=== PATIENT | female | born 1930 | race Caucasian/White ===

== ENCOUNTER 2017-07-17 11:31 | Emergency (ER) | payer MEDICARE ==
--- NOTE | 2017-07-17 11:55 | EDM.PDOC ---
ED HPI GENERAL MEDICAL PROBLEM - General Chief Complaint: General Stated Complaint: ER Time Seen by Provider: 07/17/17 11:40 Source of Information: Reports: Patient, Family, RN, RN Notes Reviewed History Limitations: Reports: No Limitations - History of Present Illness INITIAL COMMENTS - FREE TEXT/NARRATIVE: Patient presents the emergency room at [facility] after she had a near syncopal episode at home. The patient states that about an hour ago she felt diaphoretic, flushed, dizzy, and lightheaded in which she had to immediately sit down. The patient's daughter states that her mother became very very pale. The patient did not fall. No head injury. The patient did take her blood pressure medicines morning. The patient states the symptoms happened while she was standing next to the counter making breakfast. The patient denies any chest pain. The patient denies any shortness of breath. The patient denies any headache. The patient denies any visual field disturbances. The patient states that this past week she has felt more urinary frequency and urgency. The patient denies any hematuria. The patient states her urine looks more concentrated. Onset: Today, Sudden - Related Data Allergies Allergy/AdvReac Type Severity Reaction Status Date / Time No Known Allergies Allergy Verified 07/17/17 11:42 Home Meds: Home Meds Aspirin 81 mg PO DAILY 07/17/17 [History] Brimonidine/Timolol [Combigan 0.2%/0.5% Ophth Soln] 1 drop EYEBOTH BID 07/17/17 [History] Calc/D3/Mag/Zn/Custom T[employer]or/[place] [Calcium 600 MG Plus Vit D] 1 each PO BID [History] Colesevelam [Welchol] 2 tab PO BID 07/17/17 [History] Cyanocobalamin (Vitamin B-12) [B-12] 500 mcg PO DAILY 07/17/17 [History] Glucosamine/Msm/Chondroitin A [Glucosamine Chondroit MSM Tab] 1 each PO DAILY [History] Latanoprost [Xalatan] 1 drop OP BEDTIME 07/17/17 [History] Lutein 40 mg PO DAILY 07/17/17 [History] Metoprolol Succinate [Toprol Xl] 50 mg PO DAILY 07/17/17 [History] Multivitamin [Daily Multiple Vitamin] 1 tab PO DAILY 07/17/17 [History] [place]-3S/DHA/Epa/Fish Oil [[place]-3 Fish Oil 1,000 mg Sfgl] 1 each PO DAILY 07/17 [History] Turmeric Root Extract [Turmeric] 500 mg PO ASDIRECTED 07/17/17 [History] cycloSPORINE [Restasis] 1 drop EYEBOTH BID 07/17/17 [History] Past Medical History Cardiovascular History: Reports: Hypertension Social & Family History - Tobacco Use Smoking Status *Q: Never Smoker ED ROS GENERAL - Review of Systems Review Of Systems: See Below Constitutional: Reports: Weakness, Diaphoresis. Denies: Fever, Chills, Decreased Appetite Respiratory: Denies: Shortness of Breath, Cough Cardiovascular: Reports: Lightheadedness. Denies: Chest Pain, Palpitations GI/Abdominal: Denies: Abdominal Pain, Nausea, Vomiting Skin: Reports: Diaphoresis, Other (felt flushed) Neurological: Reports: Dizziness. Denies: Headache, Numbness, Paresthesia, Tingling ED EXAM, GENERAL - Physical Exam Exam: See Below Exam Limited By: No Limitations General Appearance: Alert, No Apparent Distress Eye Exam: Bilateral Eye: Normal Inspection, PERRL Ears: Normal External Exam, Normal Canal, Normal TMs Ear Exam: Bilateral Ear: TM normal Respiratory/Chest: No Respiratory Distress, Lungs Clear, Normal Breath Sounds Cardiovascular: Normal Peripheral Pulses, Regular Rate, Rhythm, No Edema Peripheral Pulses: 2+: Radial (L), Radial (R) GI/Abdominal: Normal Bowel Sounds, Soft, Non-Tender Neurological: Alert, Oriented Skin Exam: Warm, Dry, Intact, Normal Color EKG INTERPRETATION EKG Date: 07/17/17 Time: 12:01 Rhythm: NSR Rate (Beats/Min): 57 [place]: Normal P-Wave: Present QRS: Normal ST-T: Normal QT: Normal [place]/PQ Interval: 0.20 Comparison: NA - No Prior EKG EKG Interpretation Comments: 1. Sinus Bradycardia 2. Low QRS voltage in precordial leads 3. Borderline ECG Course - Vital Signs Last Recorded V/S: Last Vital Signs Temp 36.2 C 07/17/17 11:31 Pulse 58 L 07/17/17 12:36 Resp 16 07/17/17 12:36 BP 151/66 H 07/17/17 12:36 Pulse Ox 99 07/17/17 12:36 - Orders/Labs/Meds Orders: Active Orders 24 hr Category Date Time Status EKG 12 Lead [EKG Documentation Completion] [RC] STAT Care 07/17/17 11:40 Active Labs: Laboratory Tests 07/17/17 07/17/17 07/17/17 Range/Units 11:57 11:57 13:06 WBC 6.8 (4.0-10.0) x10^3/uL RBC 4.44 (4.00-5.50) x10^6/uL Hgb 13.6 (12.0-16.0) g/dL Hct 41.2 (33.0-47.0) % MCV 92.8 (78.0-93.0) fL MCH 30.6 (26.0-32.0) pg MCHC 33.0 (32.0-36.0) g/dL RDW Coeff of Valentin 14.5 (10.0-15.0) % Plt Count 169 (130-400) x10^3/uL Neut % (Auto) 53.7 (50.0-80.0) % Lymph % (Auto) 35.3 (25.0-50.0) % [place] % (Auto) 8.1 (2.0-11.0) % Eos % (Auto) 2.2 (0.0-4.0) % Baso % (Auto) 0.7 (0.2-1.2) % Sodium 134 L (136-145) mmol/L Potassium 4.8 (3.5-5.1) mmol/L Chloride 100 (98-107) mmol/L Carbon Dioxide 29 (21-32) mmol/L BUN 12 (7-18) mg/dL Creatinine 1.2 H (0.55-1.02) mg/dL Est Cr Clr Drug Dosing TNP Estimated GFR (MDRD) 43 Glucose 155 H (74-106) mg/dL Calcium 9.2 (8.5-10.1) mg/dL Creatine Kinase 95 (26-192) U/L Troponin I < 0.017 (<=0.056) ng/mL Urine Color Yellow (YELLOW) Urine Appearance Clear (CLEAR) Urine pH 7.0 (5.0-8.0) Ur Specific [place] 1.015 Urine Protein Negative (NEGATIVE) mg/dL Urine Glucose (UA) Negative (NEGATIVE) mg/dL Urine Ketones Negative (NEGATIVE) mg/dL Urine Occult Blood Negative (NEGATIVE) Urine Nitrite Negative (NEGATIVE) Urine Bilirubin Negative (NEGATIVE) Urine Urobilinogen 0.2 (0.2) EU/dL Ur Leukocyte Esterase Small H (NEGATIVE) Urine RBC 0-5 (NOT SEEN) /HPF Urine WBC 0-5 (NOT SEEN) /HPF Ur Squamous Epith Cells Few H (NEGATIVE) /HPF Urine Bacteria Rare (NEGATIVE) /HPF Urine Mucus Not seen (NEGATIVE) /LPF Departure - Departure Time of Disposition: 13:20 Disposition: Home, Self-Care 01 Condition: Good Clinical Impression: Near syncope - Discharge Information Instructions: Near-Syncope, [id number] Referrals: Loretta Light MD [Primary Care Provider] - Forms: ED Department Discharge Additional Instructions: 1. Stay well hydrated and rest 2. Continue with home medications the same 3. Blood work and EKG were normal today 4. See your Primary as symptoms warrant 5. Call with any questions/concerns, your health is important to us! - Problem List Review Problem List Initiated/Reviewed/Updated: Yes - My Orders Last 24 Hours: My Active Orders 07/17/17 11:40 EKG 12 Lead [EKG Documentation Completion] [RC] STAT - Assessment/Plan Last 24 Hours: My Active Orders 07/17/17 11:40 EKG 12 Lead [EKG Documentation Completion] [RC] STAT Assessment:: Near-Syncope Plan: Labs and testing discussed with patient. No etiology found for her symptoms. Will discharge home as no reason for admission. Recommend follow up with PCP as symptoms warrant.
[2017-07-17 12:25] LABS: CHLORIDE,CL 100 mmol/L (98-107); SODIUM,NA 134 mmol/L (136-145)
== END 2017-07-17 13:35 | disposition home or self-care (01) ==
LOC: VM.ED 11:31
DX: R55 Syncope and collapse (principal); I10 Essential (primary) hypertension; Z79.899 Other long term (current) drug therapy; Z79.82 Long term (current) use of aspirin
CPT/HCPCS: 36415; 80048; 81001; 82550; 84484; 85025; 93005; 99284

== ENCOUNTER 2018-11-13 21:15 | Observation (INO) | payer MEDICARE ==
--- NOTE | 2018-11-13 21:46 | EDM.PDOC ---
ED HPI GENERAL MEDICAL PROBLEM - General Chief Complaint: General Stated Complaint: HIGH BP Time Seen by Provider: 11/13/18 21:30 Source of Information: Reports: Patient, Family History Limitations: Reports: No Limitations - History of Present Illness INITIAL COMMENTS - FREE TEXT/NARRATIVE: Patient tonight while at the assisted living facility approximately 5pm patient states that she is having some blurry vision and having trouble focusing on objects her blood pressure was checked and found to be 186/135 patient states that she recently on November 06 saw her primary care provider which stopped her lisinopril secondary to possibly causing the dizziness that she was getting at 5 PM every night but she says that is been going on for months now and she says as soon as she lays down the dizziness goes away she said it would last just a few minutes Patient states that she feels fine now she denies any headache loss of vision nausea or vomiting and ringing or roaring in the ears lightheadedness dizziness weakness no numbness or tingling anywhere no strokelike symptoms says she she feels fine overall and has had no issues over the last week Onset: Today Duration: Hour(s): - Related Data Allergies Allergy/AdvReac Type Severity Reaction Status Date / Time No Known Allergies Allergy Verified 11/13/18 21:38 Home Meds: Home Meds Aspirin 81 mg PO BID 07/17/17 [History] Brimonidine/Timolol [Combigan 0.2%/0.5% Ophth Soln] 1 drop EYEBOTH BID 07/17/17 [History] Calc/D3/Mag/Zn/[employer] Writer/[place] [Calcium 600 MG Plus Vit D] 1 each PO BID [History] Colesevelam [Welchol] 1,250 mg PO BID 07/17/17 [History] Cyanocobalamin (Vitamin B-12) [B-12] 500 mcg PO DAILY 07/17/17 [History] Glucosamine/Msm/Chondroitin A [Glucosamine Chondroit MSM Tab] 1 each PO DAILY [History] Latanoprost [Xalatan] 1 drop OP BEDTIME 07/17/17 [History] Lutein 40 mg PO BID 07/17/17 [History] Metoprolol Succinate [Toprol Xl] 50 mg PO DAILY 07/17/17 [History] Multivitamin [Daily Multiple Vitamin] 1 tab PO DAILY 07/17/17 [History] [place]-3S/DHA/Epa/Fish Oil [[place]-3 Fish Oil 1,000 mg Sfgl] 1 each PO DAILY 07/17 [History] Turmeric Root Extract [Turmeric] 500 mg PO ASDIRECTED 07/17/17 [History] cycloSPORINE [Restasis] 1 drop EYEBOTH BID 07/17/17 [History] Ipratropium [place] 2 spray NS DAILY 11/13/18 [History] Memantine HCl 10 mg PO BID 11/13/18 [History] Past Medical History HEENT History: Reports: Glaucoma, Other (See Below) Other HEENT History: presbyopia, blepharitis, hereditary corneal dystrophy Cardiovascular History: Reports: Hypertension Gastrointestinal History: Reports: Diverticulosis Genitourinary History: Reports: Urinary Incontinence Musculoskeletal History: Reports: Osteoarthritis ED ROS GENERAL - Review of Systems Review Of Systems: See Below Constitutional: Reports: No Symptoms. Denies: Fever, Chills, Malaise, Weakness , Fatigue HEENT: Reports: No Symptoms, Vision Change. Denies: Ear Pain, Eye Discharge, Eye Pain, Hearing Loss, Sinus Problem, Vertigo Respiratory: Reports: No Symptoms. Denies: Shortness of Breath, Wheezing, Pleuritic Chest Pain Cardiovascular: Reports: No Symptoms Endocrine: Reports: No Symptoms GI/Abdominal: Reports: No Symptoms : Reports: No Symptoms Musculoskeletal: Reports: No Symptoms Skin: Reports: No Symptoms Neurological: Reports: No Symptoms Psychiatric: Reports: No Symptoms Hematologic/Lymphatic: Reports: No Symptoms Immunologic: Reports: No Symptoms ED EXAM, GENERAL - Physical Exam Exam: See Below Exam Limited By: No Limitations General Appearance: Alert, WD/WN, No Apparent Distress Eye Exam: Bilateral Eye: EOMI, PERRL Ears: Normal External Exam, Normal Canal, Hearing Grossly Normal, Normal TMs Nose: Normal Inspection, Normal Mucosa, No Blood Throat/Mouth: Normal Inspection, Normal Lips, Normal Gums, Normal Oropharynx, Normal Voice, No Airway Compromise Head: Atraumatic, Normocephalic. No: Facial Swelling, Facial Tenderness Neck: Normal Inspection, Supple, Non-Tender, Full Range of Motion. No: Carotid Bruit, Limited Range of Motion Respiratory/Chest: No Respiratory Distress, Lungs Clear, Normal Breath Sounds, No Accessory Muscle Use, Chest Non-Tender Cardiovascular: Normal Peripheral Pulses, Regular Rate, Rhythm, No Edema, No Gallop, No JVD, No Murmur, No Rub GI/Abdominal: Normal Bowel Sounds, Soft, Non-Tender, No Organomegaly, No Distention, No Abnormal Bruit Back Exam: Full Range of Motion Extremities: Normal Inspection, Normal Range of Motion, Non-Tender, No Pedal Edema, Normal Capillary Refill Neurological: Alert, Oriented, CN II-XII Intact, Normal Cognition, Normal Gait, Normal Reflexes, No Motor/Sensory Deficits, Other (Patient follows all commands has normal speech and normal thought and logic normal conversation cranial nerves II through XII are intact she has equal cardiology physician assistant bilaterally she has equal facial sensation she has no pronator drift follow [address] around upper and lower extremity no evidence of any acute stroke) Psychiatric: Normal Affect, Normal Mood Skin Exam: Warm, Dry, Normal Color, No Rash Course - Vital Signs Text/Narrative:: CBC BMP EKG and CT head noncontrast was ordered along with EKG CT head negative EKG normal sinus rhythm nothing acute WERE within normal limits except for mild hypoNA of 132 I will give the patient 20 mg of lisinopril secondary to she has been on them in the past with no issues WITH patient in under observation for the next 23 hours and have a primary care provider pick her up in the morning spoke with Dr. Michelle Yousif she is okay with the diagnosis and treatment The patient will be put back on lisinopril 10 mg starting in the a.m. until seen are changed by the primary care provider Last Recorded V/S: Last Vital Signs Temp 37.4 C 11/13/18 21:15 Pulse 75 11/13/18 22:25 Resp 18 11/13/18 21:15 BP 193/91 H 11/13/18 22:24 Pulse Ox 96 11/13/18 22:25 - Orders/Labs/Meds Orders: Active Orders 24 hr Category Date Time Status EKG 12 Lead [EKG Documentation Completion] [RC] STAT Care 11/13/18 21:41 Active Head wo Cont [CT] Stat Exams 11/13/18 21:40 Taken Lisinopril [Prinivil] Med 11/14/18 08:00 Ordered 20 mg PO DAILY Labs: Laboratory Tests 11/13/18 11/13/18 11/13/18 Range/Units 21:58 21:58 22:08 WBC 9.3 (4.0-10.0) x10^3/uL RBC 4.90 (4.00-5.50) x10^6/uL Hgb 15.0 (12.0-16.0) g/dL Hct 43.0 (33.0-47.0) % MCV 87.8 D (78.0-93.0) fL MCH 30.6 (26.0-32.0) pg MCHC 34.9 (32.0-36.0) g/dL RDW Coeff of Valentin 14.0 (10.0-15.0) % Plt Count 194 (130-400) x10^3/uL Neut % (Auto) 42.5 L (50.0-80.0) % Lymph % (Auto) 40.8 (25.0-50.0) % [place] % (Auto) 13.5 H (2.0-11.0) % Eos % (Auto) 2.9 (0.0-4.0) % Baso % (Auto) 0.3 (0.2-1.2) % Sodium 132 L (136-145) mmol/L Potassium 4.0 (3.5-5.1) mmol/L Chloride 95 L (98-107) mmol/L Carbon Dioxide 27 (21-32) mmol/L Anion Gap 14.0 (10-20) mmol/L BUN 11 (7-18) mg/dL Creatinine 1.1 H (0.55-1.02) mg/dL Est Cr Clr Drug Dosing 32.29 mL/min Estimated GFR (MDRD) 47 Glucose 106 (74-106) mg/dL Calcium 9.2 (8.5-10.1) mg/dL Urine Color Yellow (YELLOW) POC Urine Appearance Slightly cloudy H (CLEAR) POC Urine pH 7.0 (5.0-8.0) Ur Specific [place] 1.015 (1.005-1.030) POC Urine Protein Negative (NEGATIVE) POC Ur Glucose (UA) Negative (NEGATIVE) POC Urine Ketones Negative (NEGATIVE) POC Ur Occult Blood Negative (NEGATIVE) POC Urine Nitrite Negative (NEGATIVE) POC Urine Bilirubin Negative (NEGATIVE) POC Urine Urobilinogen 0.2 (0.2) POC U Leukocyte Esteras Trace H (NEGATIVE) Departure - Departure Time of Disposition: 22:20 Disposition: Refer to Observation Condition: Good Clinical Impression: Hypertensive urgency - Discharge Information Referrals: Delmis Lobo DO [Primary Care Provider] - Forms: ED Department Discharge - Problem List & Annotations (1) Hypertensive urgency SNOMED Code(s): 481606231 Code(s): I16.0 - HYPERTENSIVE URGENCY Status: Acute Current Visit: Yes - My Orders Last 24 Hours: My Active Orders 11/13/18 21:40 Head wo Cont [CT] Stat 11/13/18 21:41 EKG 12 Lead [EKG Documentation Completion] [RC] STAT 11/14/18 08:00 Lisinopril [Prinivil] 20 mg PO DAILY - Assessment/Plan Admission H&P: Please use this note as an admission H&P Last 24 Hours: My Active Orders 11/13/18 21:40 Head wo Cont [CT] Stat 11/13/18 21:41 EKG 12 Lead [EKG Documentation Completion] [RC] STAT 11/14/18 08:00 Lisinopril [Prinivil] 20 mg PO DAILY Assessment:: Assessment #1 hypertension urgency Assessment #2 transient vision problems Assessment #3 hyponatremia
[2018-11-13] MEDS: Lisinopril 20 MG Tab PO SCH (22:49)
[2018-11-13] MEDS ORDERED: Sodium Chloride 0.9% 10 ML Syringe FLUSH PRN (23:11)
[2018-11-14 07:06] LABS: ANION GAP 12.1 mmol/L (10-20)
--- NOTE | 2018-11-14 07:46 | CT ---
[id number] CT/CT Head WO IV EXAM: NONCONTRAST HEAD CT INDICATION: Hypertension. COMPARISON: February 17, 2017. DISCUSSION: Stable moderate chronic small vessel ischemic changes and generalized atrophy. No mass effect or midline shift. No acute hemorrhage or extra-axial fluid collection. No acute territorial infarct is identified. There are few opacified right mastoid air cells similar to the previous examination. The paranasal sinuses are unremarkable. IMPRESSION: 1. No acute findings. Corby Ramirez MD 11/14/18 0745 Thank you for allowing us to participate in the care of your patient.
[2018-11-14] MEDS ORDERED: Lisinopril 20 MG Tab PO SCH (08:00)
[2018-11-14] MEDS ORDERED: COMBIGAN EYEBOTH SCH (08:00)
[2018-11-14] MEDS ORDERED: Metoprolol Succinate 50 MG Tab.ER PO SCH (08:00)
[2018-11-14] MEDS ORDERED: Aspirin 81 MG Tab.Chew PO SCH (08:00)
[2018-11-14] MEDS ORDERED: Dextran 70/Hypromellose/PF Ophth Soln 0.9 ML UD EYEBOTH SCH (08:00)
[2018-11-14] MEDS ORDERED: Cyanocobalamin (Vitamin B12) 250 MCG Tab PO SCH (08:00)
[2018-11-14] MEDS: Lisinopril 20 MG Tab PO SCH (09:51)
--- NOTE | 2018-11-14 12:35 | PCM.DCSUM1 ---
Discharge Summary - Hospital Course Free Text/Narrative:: Patient was rechecked this morning and states she feels much better than she did last night she denies any headache vision issues, nausea and lightheadedness dizziness weakness no trouble with gait. States she ate a full breakfast and a full lunch today with no issues and wants to go home. 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 she has a normal conversation and thought process eyes pupils equal round reactive light and accommodation EOMIs intact oropharynx moist mucous membranes neck full range of motion no adenopathy heart regular rate and rhythm no murmurs rubs or gallops lungs clear to auscultation abdomen soft and supple positive bowel sounds no lower extremity ecchymosis or edema was noted Spoke with primary care provider paz she states okay to go and restart patient on 5 mg lisinopril by mouth daily and have her follow-up in the next 2- 3 days in clinic Also spoke with the patient and the family patient's son and daughter who is power of ip attorney in regards to restarting the medication they are okay with it And states they will have her follow up this week with primary care provider Diagnosis: Stroke: No - Discharge Data Discharge Date: 11/14/18 Discharge Disposition: Home, Self-Care 01 Condition: Good - Discharge Diagnosis/Problem(s) (1) Hypertensive urgency SNOMED Code(s): 621864756 ICD Code: I16.0 - HYPERTENSIVE URGENCY Status: Acute Current Visit: Yes - Patient Instructions Diet, Other: regular Activity, Other: ad neeta Notify Provider of: Fever, Increased Pain, Swelling and Redness, Nausea and/or Vomiting - Discharge Plan *PRESCRIPTION DRUG MONITORING PROGRAM REVIEWED*: Not Applicable *COPY OF PRESCRIPTION DRUG MONITORING REPORT IN PATIENT BENNIE: No Prescriptions/Med Rec: Lisinopril [Prinivil] 5 mg PO DAILY #30 tablet Home Medications: Home Meds Brimonidine/Timolol [Combigan 0.2%/0.5% Ophth Soln] 1 drop EYEBOTH BID 07/17/17 [History] Calc/D3/Mag/Zn/Management Planner/Leo/Merkel [Calcium 600 MG Plus Vit D] 1 each PO BID [History] Colesevelam [Welchol] 1,250 mg PO BID 07/17/17 [History] Cyanocobalamin (Vitamin B-12) [B-12] 500 mcg PO DAILY 07/17/17 [History] Glucosamine/Msm/Chondroitin A [Glucosamine Chondroit MSM Tab] 1 each PO DAILY [History] Latanoprost [Xalatan 0.005% Ophth Soln] 1 drop OP BEDTIME 07/17/17 [History] Lutein 40 mg PO BID 07/17/17 [History] Metoprolol Succinate [Toprol Xl] 50 mg PO DAILY 07/17/17 [History] Multivitamin [Daily Multiple Vitamin] 1 tab PO DAILY 07/17/17 [History] [place]-3S/DHA/Epa/Fish Oil [[place]-3 Fish Oil 1,000 mg Sfgl] 1,000 mg PO DAILY [History] Turmeric Root Extract [Turmeric] 500 mg PO ASDIRECTED 07/17/17 [History] cycloSPORINE [Restasis] 1 drop EYEBOTH BID 07/17/17 [History] Ipratropium [place] 2 spray NASBOTH TID 11/13/18 [History] Memantine HCl 10 mg PO BID 11/13/18 [History] Aspirin 81 mg PO BID tab.chew 11/14/18 [Rx] Aspirin [Lo-Dose Aspirin EC] 81 mg PO DAILY 11/14/18 [History] Carboxymethyl/Glycerin/Poly80 [Refresh Optive Advanced Drops] 1 drop OP BID [History] Fluticasone Propionate [Flonase] 2 sprays NASBOTH BID 11/14/18 [History] Lisinopril [Prinivil] 5 mg PO DAILY #30 tablet 11/14/18 [Rx] Forms: ED Department Discharge Referrals: Paz Lobo DO [Primary Care Provider] - - Discharge Summary/Plan Comment DC Time >30 min.: No - General Info Date of Service: 11/14/18 Functional Status: Reports: Tolerating Diet - Review of Systems General: Reports: No Symptoms HEENT: Reports: No Symptoms Pulmonary: Reports: No Symptoms Cardiovascular: Reports: No Symptoms Gastrointestinal: Reports: No Symptoms Genitourinary: Reports: No Symptoms Musculoskeletal: Reports: No Symptoms Skin: Reports: No Symptoms Neurological: Reports: No Symptoms Psychiatric: Reports: No Symptoms - Patient Data Vitals - Most Recent: Last Vital Signs Temp 36.6 C 11/14/18 09:05 Pulse 75 11/14/18 09:48 Resp 16 11/14/18 09:05 BP 132/71 11/14/18 09:48 Pulse Ox 93 L 11/14/18 09:05 Weight - Most Recent: 63.503 kg I&O - Last 24 hours: Intake & Output 11/13/18 11/14/18 11/14/18 22:59 06:59 14:59 Intake Total 300 Output Total 1 Balance 300 -1 Lab Results - Last 24 hrs: Laboratory Results - last 24 hr 11/13/18 11/13/18 11/13/18 Range/Units 21:58 21:58 22:08 WBC 9.3 (4.0-10.0) x10^3/uL RBC 4.90 (4.00-5.50) x10^6/uL Hgb 15.0 (12.0-16.0) g/dL Hct 43.0 (33.0-47.0) % MCV 87.8 D (78.0-93.0) fL MCH 30.6 (26.0-32.0) pg MCHC 34.9 (32.0-36.0) g/dL RDW Coeff of Valentin 14.0 (10.0-15.0) % Plt Count 194 (130-400) x10^3/uL Neut % (Auto) 42.5 L (50.0-80.0) % Lymph % (Auto) 40.8 (25.0-50.0) % Coffey % (Auto) 13.5 H (2.0-11.0) % Eos % (Auto) 2.9 (0.0-4.0) % Baso % (Auto) 0.3 (0.2-1.2) % Sodium 132 L (136-145) mmol/L Potassium 4.0 (3.5-5.1) mmol/L Chloride 95 L (98-107) mmol/L Carbon Dioxide 27 (21-32) mmol/L Anion Gap 14.0 (10-20) mmol/L BUN 11 (7-18) mg/dL Creatinine 1.1 H (0.55-1.02) mg/dL Est Cr Clr Drug Dosing 32.29 mL/min Estimated GFR (MDRD) 47 Glucose 106 (74-106) mg/dL Calcium 9.2 (8.5-10.1) mg/dL Urine Color Yellow (YELLOW) POC Urine Appearance Slightly cloudy H (CLEAR) POC Urine pH 7.0 (5.0-8.0) Ur Specific [place] 1.015 (1.005-1.030) POC Urine Protein Negative (NEGATIVE) POC Ur Glucose (UA) Negative (NEGATIVE) POC Urine Ketones Negative (NEGATIVE) POC Ur Occult Blood Negative (NEGATIVE) POC Urine Nitrite Negative (NEGATIVE) POC Urine Bilirubin Negative (NEGATIVE) POC Urine Urobilinogen 0.2 (0.2) POC U Leukocyte Esteras Trace H (NEGATIVE) 11/14/18 Range/Units 06:36 WBC (4.0-10.0) x10^3/uL RBC (4.00-5.50) x10^6/uL Hgb (12.0-16.0) g/dL Hct (33.0-47.0) % MCV (78.0-93.0) fL MCH (26.0-32.0) pg MCHC (32.0-36.0) g/dL RDW Coeff of Valentni (10.0-15.0) % Plt Count (130-400) x10^3/uL Neut % (Auto) (50.0-80.0) % Lymph % (Auto) (25.0-50.0) % Coffey % (Auto) (2.0-11.0) % Eos % (Auto) (0.0-4.0) % Baso % (Auto) (0.2-1.2) % Sodium 134 L (136-145) mmol/L Potassium 4.1 (3.5-5.1) mmol/L Chloride 98 (98-107) mmol/L Carbon Dioxide 28 (21-32) mmol/L Anion Gap 12.1 (10-20) mmol/L BUN 13 (7-18) mg/dL Creatinine 1.5 H (0.55-1.02) mg/dL Est Cr Clr Drug Dosing 26.66 mL/min Estimated GFR (MDRD) 33 Glucose 114 H (74-106) mg/dL Calcium 9.2 (8.5-10.1) mg/dL Urine Color (YELLOW) POC Urine Appearance (CLEAR) POC Urine pH (5.0-8.0) Ur Specific [place] (1.005-1.030) POC Urine Protein (NEGATIVE) POC Ur Glucose (UA) (NEGATIVE) POC Urine Ketones (NEGATIVE) POC Ur Occult Blood (NEGATIVE) POC Urine Nitrite (NEGATIVE) POC Urine Bilirubin (NEGATIVE) POC Urine Urobilinogen (0.2) POC U Leukocyte Esteras (NEGATIVE) Med Orders - Current: Current Medications Artificial Tears (Tears Naturale Free) 1 each EYEBOTH BID [facility] Last Admin: 11/14/18 09:53 Dose: Not Given Aspirin (Aspirin) 81 mg PO BID [facility] Last Admin: 11/14/18 09:52 Dose: 81 mg Cyanocobalamin (Vitamin B12) 500 mcg PO DAILY [facility] Last Admin: 11/14/18 09:52 Dose: 500 mcg Lisinopril (Prinivil) 20 mg PO DAILY [facility] Last Admin: 11/14/18 09:51 Dose: Not Given Metoprolol Succinate (Toprol Xl) 50 mg PO DAILY [facility] Last Admin: 11/14/18 09:48 Dose: 50 mg Combigan 0.2%/0.5% Ophth Soln (Own Supply) 1 drop EYEBOTH BID [facility] Last Admin: 11/14/18 09:52 Dose: 1 drop Latanoprost 0.005% Ophth Soln (Own Supply) 0 each EYEBOTH BEDTIME [facility] Sodium Chloride (Saline Flush) 10 ml FLUSH ASDIRECTED PRN PRN Reason: Keep Vein Open Discontinued Medications Lisinopril (Prinivil) 20 mg PO DAILY [facility] - Exam General: Reports: Alert, Oriented HEENT: Reports: Pupils Equal, Pupils Reactive, EOMI, Mucous Membr. Moist/[place]atur[place] Neck: Reports: Supple Lungs: Reports: Clear to Auscultation, Normal Respiratory Effort Cardiovascular: Reports: Regular Rate, Regular Rhythm GI/Abdominal Exam: Normal Bowel Sounds, Soft, Non-Tender, No Organomegaly, No Distention Back Exam: Reports: Full Range of Motion Extremities: Normal Inspection, Normal Range of Motion, Non-Tender, No Pedal Edema Skin: Reports: Warm, Dry, Intact Neurological: Reports: No New Focal Deficit, Normal Gait, Normal Speech, Strength Equal Bilateral, Cranial Nerves Intact Psy/Mental Status: Reports: Alert, Normal Affect, Normal Mood
[2018-11-14] MEDS ORDERED: Latanoprost 0.005% Ophth Soln (own supply) EYEBOTH SCH (20:00)
== END 2018-11-14 13:05 | disposition home or self-care (01) ==
LOC: VM.ED 21:15 → VM.MS 22:36
PROVIDERS: ADMIT Physician Assistant Medical; ATTEND Physician Assistant Medical
DX: I16.0 Hypertensive urgency (principal); I10 Essential (primary) hypertension; H40.9 Unspecified glaucoma; M19.90 Unspecified osteoarthritis, unspecified site; Z79.82 Long term (current) use of aspirin; Z79.51 Long term (current) use of inhaled steroids; Z79.899 Other long term (current) drug therapy; H53.8 Other visual disturbances
CPT/HCPCS: 36415; 70450; 80048; 81002; 85025; 93005; 99217; 99219; 99285; A9270; G0378

== ENCOUNTER 2019-06-25 00:28 | Emergency (ER) | payer MEDICARE ==
--- NOTE | 2019-06-25 00:56 | EDM.PDOC ---
ED HPI GENERAL MEDICAL PROBLEM - General Chief Complaint: Lower Extremity Injury/Pain Stated Complaint: Fall, right hip pain Time Seen by Provider: 06/25/19 00:40 Source of Information: Reports: Family History Limitations: Reports: Altered Mental Status - History of Present Illness INITIAL COMMENTS - FREE TEXT/NARRATIVE: Patient presents to ER per EMS from assisted living facility with complaints of right hip pain. Son relates he was told that staff found her lying on the floor in her room. Walker was laying on the floor. Patient unsure of events of fall. Has been more confused and unsteady per the son and is currently being treated for an UTI. Patient complaints of pain from her right hip to knee. No head pain. No nausea, has not vomited. Son also reports she fell yesterday while opening her drapes, did not sustain injury at that time. Onset: Today, Sudden Duration: Minutes:, Constant Location: Reports: Lower Extremity, Right Quality: Reports: Throbbing Improves with: Reports: Rest Worsens with: Reports: Movement Context: Reports: Trauma Associated Symptoms: Reports: Confusion, Weakness. Denies: Cough, Fever/Chills , Nausea/Vomiting, Shortness of Breath Right hip/thigh Pain Score (Numeric/FACES): 6 - Related Data Allergies Allergy/AdvReac Type Severity Reaction Status Date / Time atorvastatin [From Lipitor] AdvReac Nausea and Verified 06/25/19 00:48 Vomiting fenofibrate [From Tricor] AdvReac Nausea Verified 06/25/19 00:48 simvastatin [From Zocor] AdvReac Nausea Verified 06/25/19 00:48 Yshfyyn-Jnd-Yya Reductase AdvReac Nausea Verified 06/25/19 00:48 Inhibitor Home Meds: Home Meds Brimonidine/Timolol [Combigan 0.2%/0.5% Ophth Soln] 1 drop EYEBOTH BID 07/17/17 [History] Calc/D3/Mag/Zn/Tre/Leo/[place] [Calcium 600 MG Plus Vit D] 1 each PO BID [History] Colesevelam [Welchol] 1,250 mg PO BID 07/17/17 [History] Cyanocobalamin (Vitamin B-12) [B-12] 500 mcg PO DAILY 07/17/17 [History] Glucosamine/Msm/Chondroitin A [Glucosamine Chondroit MSM Tab] 1 each PO DAILY [History] Latanoprost [Xalatan 0.005% Ophth Soln] 1 drop OP BEDTIME 07/17/17 [History] Lutein 40 mg PO BID 07/17/17 [History] Metoprolol Succinate [Toprol Xl] 50 mg PO DAILY 07/17/17 [History] Multivitamin [Daily Multiple Vitamin] 1 tab PO DAILY 07/17/17 [History] [place]-3S/DHA/Epa/Fish Oil [[place]-3 Fish Oil 1,000 mg Sfgl] 1,000 mg PO DAILY [History] Turmeric Root Extract [Turmeric] 500 mg PO ASDIRECTED 07/17/17 [History] cycloSPORINE [Restasis] 1 drop EYEBOTH BID 07/17/17 [History] Ipratropium [place] 2 spray NASBOTH TID 11/13/18 [History] Memantine HCl 10 mg PO BID 11/13/18 [History] Aspirin 81 mg PO BID tab.chew 11/14/18 [Rx] Aspirin [Lo-Dose Aspirin EC] 81 mg PO DAILY 11/14/18 [History] Carboxymethyl/Glycerin/Poly80 [Refresh Optive Advanced Drops] 1 drop OP BID [History] Fluticasone Propionate [Flonase] 2 sprays NASBOTH BID 11/14/18 [History] lisinopriL [Prinivil] 5 mg PO DAILY #30 tablet 11/14/18 [Rx] Past Medical History HEENT History: Reports: Glaucoma, Other (See Below) Other HEENT History: presbyopia, blepharitis, hereditary corneal dystrophy Cardiovascular History: Reports: Hypertension Gastrointestinal History: Reports: Diverticulosis Genitourinary History: Reports: Urinary Incontinence, UTI, Recurrent Musculoskeletal History: Reports: Osteoarthritis Neurological History: Reports: Alzheimers Disease - Past Surgical History Female Surgical History: Reports: Hysterectomy Social & Family History - Family History Family Medical History: Noncontributory - Tobacco Use Smoking Status *Q: Unknown Ever Smoked - Caffeine Use Caffeine Use: Reports: Coffee Review of Systems - Review of Systems Review Of Systems: See Below Constitutional: Reports: Weakness. Denies: Chills, Diaphoresis, Fever Eyes: Reports: No Symptoms Ears: Denies: Dizziness Nose: Denies: Epistaxis Mouth/Throat: Reports: No Symptoms Respiratory: Denies: Shortness of Breath Cardiovascular: Denies: Chest Pain, Palpitations GI/Abdominal: Denies: Abdominal Pain, Nausea, Vomiting Genitourinary: Reports: No Symptoms Musculoskeletal: Reports: Leg Pain, Joint Pain Skin: Reports: No Symptoms Neurological: Reports: Confusion ED EXAM, GENERAL - Physical Exam Exam: See Below Exam Limited By: No Limitations General Appearance: Alert, WD/WN, No Apparent Distress Ears: Normal External Exam, Normal TMs Nose: Normal Inspection, Normal Mucosa, No Blood Throat/Mouth: Normal Inspection, Normal Oropharynx Head: Normocephalic Neck: Normal Inspection, Supple, Non-Tender Respiratory/Chest: No Respiratory Distress, Lungs Clear, Normal Breath Sounds Cardiovascular: Regular Rate, Rhythm GI/Abdominal: Normal Bowel Sounds, Soft, Non-Tender Extremities: Limited Range of Motion (patient has pain with palpation of right thigh. RLE is externally rotated. ) Neurological: Alert, Oriented (person only) Skin Exam: Warm, Dry Course - Vital Signs Last Recorded V/S: Last Vital Signs Temp 97.8 F 06/25/19 00:30 Pulse 75 06/25/19 01:40 Resp 16 06/25/19 01:40 BP 171/101 H 06/25/19 01:40 Pulse Ox 98 06/25/19 01:40 - Orders/Labs/Meds Orders: Active Orders 24 hr Category Date Time Status Insert Nye Catheter [Insert Urinary Catheter] [OM.PC] Care 06/25/19 01:15 Ordered Q24H Urinary Catheter Assessment [RC] ASDIRECTED Care 06/25/19 01:17 Active Meds: Medications Discontinued Medications Generic Name Dose Route Start Last Admin Trade Name Tina PRN Reason Stop Dose Admin Fentanyl 25 mcg 06/25/19 00:52 06/25/19 01:00 Sublimaze IVPUSH 25 mcg Q2H PRN Administration Pain Fentanyl 25 mcg 06/25/19 01:45 06/25/19 02:04 Sublimaze IVPUSH 06/25/19 01:46 25 mcg ONETIME ONE Administration - Re-Assessments/Exams Free Text/Narrative Re-Assessment/Exam: 06/25/19 01:[address] Singleton at [place] in regards to right hip fracture. Agreed to accept the patient in transfer. Departure - Departure Time of Disposition: 01:36 Disposition: DC/Tfer to Acute Hospital 02 Condition: Fair Clinical Impression: Intertrochanteric fracture, hip, Hypertensive urgency - Discharge Information *PRESCRIPTION DRUG MONITORING PROGRAM REVIEWED*: No *COPY OF PRESCRIPTION DRUG MONITORING REPORT IN PATIENT BENNIE: No Referrals: PCP,Unobtain [Primary Care Provider] - Forms: ED Department Discharge, Interfacility Transfer [facility] Additional Instructions: Transfer to [facility] per [facility] ambulance, accepting physician Dr. Singleton. Sepsis Event Note - Evaluation Sepsis Screening Result: No Definite Risk - Focused Exam Date Exam was Performed: 06/25/19 Time Exam was Performed: 16:22 - My Orders Last 24 Hours: My Active Orders 06/25/19 01:15 Insert Nye Catheter [Insert Urinary Catheter] [OM.PC] Q24H 06/25/19 01:17 Urinary Catheter Assessment [RC] ASDIRECTED - Assessment/Plan Last 24 Hours: My Active Orders 06/25/19 01:15 Insert Nye Catheter [Insert Urinary Catheter] [OM.PC] Q24H 06/25/19 01:17 Urinary Catheter Assessment [RC] ASDIRECTED
[2019-06-25] MEDS: fentaNYL 100 MCG/2 ML SDV IVPUSH PRN (01:00)
[2019-06-25] MEDS: fentaNYL 100 MCG/2 ML SDV IVPUSH ONE (02:04)
--- NOTE | 2019-06-25 09:43 | CR ---
[id number] RAD/RAD Pelvis 1V W 2V Right Hip EXAM: 3 VIEWS RIGHT HIP INDICATION: FALL COMPARISON: None. DISCUSSION: Acute intertrochanteric fracture of the right femur. There are multiple radiographically evident fracture lines identified. No significant displacement. No dislocation. IMPRESSION: 1. ACUTE INTERTROCHANTERIC FRACTURE OF THE RIGHT FEMUR. Johnny Coleman DO 06/25/19 0942 Thank you for allowing us to participate in the care of your patient.
== END 2019-06-25 02:14 | disposition short-term general hospital (02) ==
LOC: VM.ED 00:28
DX: S72.141A Displaced intertrochanteric fracture of right femur, initial encounter for closed fracture (principal); I16.0 Hypertensive urgency; I10 Essential (primary) hypertension; G30.9 Alzheimer's disease, unspecified; F02.80 Dementia in other diseases classified elsewhere, unspecified severity, without behavioral disturbance, psychotic disturbance, mood disturbance, and anxiety; Z88.8 Allergy status to other drugs, medicaments and biological substances; Z79.899 Other long term (current) drug therapy; Z79.82 Long term (current) use of aspirin; W19.XXXA Unspecified fall, initial encounter
CPT/HCPCS: 51702; 96374; 96376; 99284-GF; 99285-25; J3010

== ENCOUNTER 2019-06-28 15:09 | Inpatient (IN) | payer MEDICARE, MEDICAID ==
[2019-06-28] MEDS: Calcium Citrate/Vitamin D3 315 MG-250 Unit Tab PO SCH (18:16)
[2019-06-28] MEDS ORDERED: Non-Formulary Medication 1 Each (Ipratropium Bromide [Ipratropium Bromide] 2 SPRAY) NASBOTH SCH (20:00)
[2019-06-28] MEDS ORDERED: Latanoprost 0.005% Ophth Soln 2.5 ML Bottle EYEBOTH SCH (20:00)
[2019-06-28] MEDS: Hypromellose 0.3% Ophth Soln 15 ML Bottle EYEBOTH SCH (21:00)
[2019-06-28] MEDS: Latanoprost 0.005% Ophth Soln 2.5 ML Bottle EYEBOTH SCH (21:00)
[2019-06-28] MEDS: Timolol Maleate 0.5% Ophth Soln 5 ML Bottle EYEBOTH SCH (21:00)
[2019-06-28] MEDS: Brimonidine 0.2% Ophth Soln 5 ML Bottle EYEBOTH SCH (21:00)
[2019-06-28] MEDS: Lisinopril 5 MG Tab PO SCH (21:28)
--- NOTE | 2019-06-29 03:00 | HP ---
CHIEF COMPLAINT: Right hip fracture. HISTORY OF PRESENT ILLNESS: This is an 88-year-old female who normally resides at assisted living. She has a known history of dementia. Unfortunately, she suffered a fall and had a closed nondisplaced intertrochanteric femur fracture that was fixed with TFN by Dr. Holliday on the . She states her pain is under pretty good control. She has not had any good bowel movements, maybe little ones yesterday. She is not coughing or having any shortness of breath, but her hospital stay was most complicated by some delirium. She did not sleep at all and it sounds like she got some Seroquel, looks like only 12.5, but I also heard it might have been 25 mg last night and she was sleeping all day. In fact, her daughter says this was the most she woke up when I visited with her. She does have an underlying history of dementia, but does okay at assisted living. She was getting some oxycodone for pain, but sounds like not routinely. The patient otherwise had a hemoglobin today that was 7.9. She did not receive any transfusion. She has been on Lovenox for DVT prophylaxis. Lab work checked just prior to this fall in May showed her hemoglobin to be 14. She has had mildly low sodium at 132. It got down as low as 123 in the hospital when she was admitted, but it was improved up to 134 today on discharge. The patient did have some hypotension after restarting her lisinopril. That was then held, but in the end, they discharged her on it today. ALLERGY LIST: Includes Lipitor, Namenda, statins, Tricor, and Zocor. MEDICATIONS: Her medication list is reviewed. Includes Tylenol 1000 every 8 hours, melatonin 9 mg at bedtime, oxycodone 2.5 every 6 hours as needed for moderate pain, MiraLAX 1 packet daily, Lovenox 40 mg daily for 26 days, vitamin D 1000 daily, calcium and vitamin D b.i.d., Toprol 50 mg daily, Combigan eye drops, latanoprost eye drops, Restasis, lisinopril 5 mg daily, aspirin 81 mg daily. Atrovent 0.3 t.i.d., B12, 500 daily, and Refresh eye drops. PAST MEDICAL HISTORY: Includes: 1. Bilateral asymptomatic mild carotid artery stenosis. 2. Chronic allergic rhinitis. 3. Chronic kidney disease stage 3. 4. History of diverticulosis. 5. Essential hypertension. 6. Fasting hyperglycemia. 7. Glaucoma. 8. Hearing loss. 9. Mixed urinary incontinence, urge and stress. 10.Moderate dementia. 11.Mini mental was 16/30. 12.In 2019, Namenda stopped due to muscle aches and other side effects. 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 14.History of palpitations with sinus tachycardia. 15.Hyperlipidemia. 16.Previous UTIs including a recent one, treated with antibiotics prior to this admission. Culture grew Klebsiella. She has had recurrent Klebsiella UTIs and varicose veins. SURGICAL HISTORY: The patient has had bilateral eye lasers and cataract surgeries, hysterectomy, and IM nailing of the hip as discussed above. FAMILY HISTORY: Both parents are . Her father did have heart problems. Sister did have glaucoma. SOCIAL HISTORY: The patient is . The patient had 3 children from her 1st marriage, 1 from her 2nd marriage. She has a daughter, who works in healthcare, who is present during my interview today. She lives at [facility]. She is a nonsmoker. She tends to drink a lot of coffee. REVIEW OF SYSTEMS: General: The patient denies any fever or chills. There had not been any drastic weight changes. HEENT: No sore throat. Cardiac: No chest pain. Respiratory: No cough. Abdomen: No nausea or vomiting, but she has not had good bowel movement since surgery. Otherwise, all systems reviewed and found to be negative unless stated in HPI. PHYSICAL EXAMINATION: Vital Signs: On admission to [facility] today, temp 99.5, pulse 89, blood pressure 152/66, respiratory rate 16, and O2 of 97% on room air. General: She is in no acute distress. Heart: Regular rate and rhythm without murmur noted. Lungs: Sounds are clear to auscultation bilaterally without crackles or wheezes. Abdomen: Has positive bowel sounds. Soft, nontender. Extremities: Warm and dry. No edema. Mental status: She is alert. She is not orientated to place. She is having slight hallucinations like she is seeing a building when she looks up towards the ceiling. Daughter states she has also mentioned seeing some people. Musculoskeletal: Her right hip is examined. There is no tenderness, but there is pretty extensive bruising. It is soft. She also has some bruising over her upper back. Otherwise, she has no pedal edema. Her calves are nontender. Minor's negative. LABORATORY WORK: From earlier today, some of it already mentioned in the HPI. Renal function: Creatinine 0.65, glucose 104, calcium 8.3, albumin 3. Otherwise, everything normal in electrolytes. White count 12, hemoglobin 7.9, platelets 159. It was also 12 white count yesterday. ASSESSMENT: 1. Right hip intertrochanteric fracture status post TFN procedure on the . 2. Acute blood loss anemia after surgery, expected. No transfusion has been given yet. 3. Probably a mechanical fall unwitnessed by the patient. 4. Delirium with history of dementia. 5. Osteopenia, now with osteoporosis due to pathologic fracture. 6. Acute on chronic hyponatremia. This is improving. 7. Recent uncomplicated Klebsiella urinary tract infection. This was treated. She even got some intravenous antibiotics while she was in [place]. 8. Essential hypertension. Blood pressure is mildly elevated. She will be on her home medications. 9. Glaucoma. We will continue her eye drops. PLAN: At this point, the patient is admitted for swing bed cares for PT and OT. For DVT prophylaxis, she will be on Lovenox until 07/23. We will repeat lab work on Wednesday. We will get her started on incentive spirometry. We will continue MiraLAX. We will have the oxycodone available if needed, but discontinue if not using along with the Seroquel I am going to order just 6.25 dose p.r.n. The patient is a code level 1. This was discussed with her daughter. MKA: 06/28/2019 22:05:47 MODL: 06/29/2019 02:54:27 /[id number] DOROTEO
[2019-06-29] MEDS: Acetaminophen 500 MG Tab PO SCH ×3 (05:05→17:47)
[2019-06-29] MEDS ORDERED: Aspirin 81 MG Tab.EC PO SCH (08:00)
[2019-06-29] MEDS: Cyanocobalamin (Vitamin B12) 250 MCG Tab PO SCH (08:13)
[2019-06-29] MEDS: Metoprolol Succinate 50 MG Tab.ER PO SCH (08:13)
[2019-06-29] MEDS: Cholecalciferol (Vitamin D3) 25 MCG Tab PO SCH (08:13)
[2019-06-29] MEDS: Calcium Citrate/Vitamin D3 315 MG-250 Unit Tab PO SCH ×2 (08:13→17:48)
[2019-06-29] MEDS: Polyethylene Glycol 3350 Powder 17 GM Packet PO SCH (08:13)
[2019-06-29] MEDS: Timolol Maleate 0.5% Ophth Soln 5 ML Bottle EYEBOTH SCH ×2 (08:20→20:05)
[2019-06-29] MEDS: Hypromellose 0.3% Ophth Soln 15 ML Bottle EYEBOTH SCH ×4 (09:08→20:11)
[2019-06-29] MEDS: Brimonidine 0.2% Ophth Soln 5 ML Bottle EYEBOTH SCH ×2 (09:08→20:06)
[2019-06-29] MEDS: Enoxaparin 30 MG/0.3 ML Syringe SUBCUT SCH (09:43)
[2019-06-29] MEDS: Latanoprost 0.005% Ophth Soln 2.5 ML Bottle EYEBOTH SCH (20:07)
[2019-06-29] MEDS: Lisinopril 5 MG Tab PO SCH (20:09)
[2019-06-30] MEDS: Acetaminophen 500 MG Tab PO SCH ×3 (00:03→17:02)
[2019-06-30 07:07] LABS: ANION GAP 13.2 mmol/L (10-20); CHLORIDE,CL 98 mmol/L (98-107); SODIUM,NA 137 mmol/L (136-145)
[2019-06-30] MEDS: Enoxaparin 30 MG/0.3 ML Syringe SUBCUT SCH (07:50)
[2019-06-30] MEDS: Cyanocobalamin (Vitamin B12) 250 MCG Tab PO SCH (07:51)
[2019-06-30] MEDS: Metoprolol Succinate 50 MG Tab.ER PO SCH (07:51)
[2019-06-30] MEDS: Calcium Citrate/Vitamin D3 315 MG-250 Unit Tab PO SCH ×2 (07:51→17:36)
[2019-06-30] MEDS: Cholecalciferol (Vitamin D3) 25 MCG Tab PO SCH (07:54)
[2019-06-30] MEDS: Hypromellose 0.3% Ophth Soln 15 ML Bottle EYEBOTH SCH ×4 (07:55→22:49)
[2019-06-30] MEDS: Polyethylene Glycol 3350 Powder 17 GM Packet PO SCH (07:56)
[2019-06-30] MEDS: Timolol Maleate 0.5% Ophth Soln 5 ML Bottle EYEBOTH SCH ×2 (07:56→19:03)
[2019-06-30] MEDS: Brimonidine 0.2% Ophth Soln 5 ML Bottle EYEBOTH SCH ×2 (08:04→19:12)
--- NOTE | 2019-06-30 08:26 | PCM.SN ---
- Free Text/Narrative Note: Labs reviewed in PCP absence. Hgb up from d/c. Sodium normal. WBC elevated but stable. Overall no concerns.
--- NOTE | 2019-06-30 15:59 | PCM.SN ---
- Free Text/Narrative Note: Contacted by nursing due to need for recurrent I/O catheterizations since patient transferred to swing bed from [place]. Patient is otherwise doing well. Suspect this is medication related. Given need for recurrent catheterizations with volumes >1 L, will do indwelling urinary catheter for 24 hours. After that time, her catheter can be removed and a voiding trial can commence. If ongoing issues, will need u/a and possibly urology consult.
[2019-06-30] MEDS: Lisinopril 5 MG Tab PO SCH (19:02)
[2019-06-30] MEDS: Latanoprost 0.005% Ophth Soln 2.5 ML Bottle EYEBOTH SCH (19:11)
[2019-06-30] MEDS: Melatonin 3 MG Tab PO PRN (22:46)
[2019-07-01] MEDS: Acetaminophen 500 MG Tab PO SCH ×4 (01:36→23:34)
[2019-07-01] MEDS: Polyethylene Glycol 3350 Powder 17 GM Packet PO SCH (08:07)
[2019-07-01] MEDS: Metoprolol Succinate 50 MG Tab.ER PO SCH (08:07)
[2019-07-01] MEDS: Cholecalciferol (Vitamin D3) 25 MCG Tab PO SCH (08:08)
[2019-07-01] MEDS: Calcium Citrate/Vitamin D3 315 MG-250 Unit Tab PO SCH ×2 (08:08→17:49)
[2019-07-01] MEDS: Cyanocobalamin (Vitamin B12) 250 MCG Tab PO SCH (08:08)
[2019-07-01] MEDS: Enoxaparin 40 MG/0.4 ML Syringe SUBCUT SCH (08:08)
[2019-07-01] MEDS: Timolol Maleate 0.5% Ophth Soln 5 ML Bottle EYEBOTH SCH ×2 (08:10→20:54)
[2019-07-01] MEDS: Hypromellose 0.3% Ophth Soln 15 ML Bottle EYEBOTH SCH ×4 (08:11→20:55)
[2019-07-01] MEDS: Brimonidine 0.2% Ophth Soln 5 ML Bottle EYEBOTH SCH ×2 (08:11→20:54)
[2019-07-01] MEDS: Latanoprost 0.005% Ophth Soln 2.5 ML Bottle EYEBOTH SCH (20:55)
[2019-07-01] MEDS: Potassium Chloride 20 MEQ Tab.ER PO SCH (20:55)
[2019-07-01] MEDS: Lisinopril 5 MG Tab PO SCH (20:56)
[2019-07-01] MEDS: oxyCODONE 5 MG Tab PO PRN (21:14)
[2019-07-01] MEDS: Melatonin 3 MG Tab PO PRN (21:15)
[2019-07-01] MEDS: QUEtiapine 25 MG Tab PO PRN (23:36)
[2019-07-02] MEDS: Cyanocobalamin (Vitamin B12) 250 MCG Tab PO SCH (08:11)
[2019-07-02] MEDS: Enoxaparin 40 MG/0.4 ML Syringe SUBCUT SCH (08:11)
[2019-07-02] MEDS: Calcium Citrate/Vitamin D3 315 MG-250 Unit Tab PO SCH ×2 (08:11→18:02)
[2019-07-02] MEDS: Polyethylene Glycol 3350 Powder 17 GM Packet PO SCH (08:11)
[2019-07-02] MEDS: Cholecalciferol (Vitamin D3) 25 MCG Tab PO SCH (08:12)
[2019-07-02] MEDS: Potassium Chloride 20 MEQ Tab.ER PO SCH (08:12)
[2019-07-02] MEDS: Acetaminophen 500 MG Tab PO SCH ×2 (08:12→16:05)
[2019-07-02] MEDS: Metoprolol Succinate 50 MG Tab.ER PO SCH (08:13)
[2019-07-02] MEDS: Timolol Maleate 0.5% Ophth Soln 5 ML Bottle EYEBOTH SCH ×2 (08:16→21:01)
[2019-07-02] MEDS: Brimonidine 0.2% Ophth Soln 5 ML Bottle EYEBOTH SCH ×2 (08:16→21:01)
[2019-07-02] MEDS: Hypromellose 0.3% Ophth Soln 15 ML Bottle EYEBOTH SCH ×4 (08:16→21:04)
[2019-07-02] MEDS: Latanoprost 0.005% Ophth Soln 2.5 ML Bottle EYEBOTH SCH (21:01)
[2019-07-02] MEDS: Melatonin 3 MG Tab PO PRN (21:02)
[2019-07-02] MEDS: Lisinopril 5 MG Tab PO SCH (21:02)
[2019-07-02] MEDS: oxyCODONE 5 MG Tab PO PRN (21:27)
[2019-07-03] MEDS: Acetaminophen 500 MG Tab PO SCH ×3 (00:19→17:39)
[2019-07-03 07:17] LABS: CHLORIDE,CL 98 mmol/L (98-107); SODIUM,NA 135 mmol/L (136-145)
[2019-07-03 07:19] LABS: ANION GAP 12.3 mmol/L (10-20)
[2019-07-03] MEDS: Potassium Chloride 20 MEQ Tab.ER PO SCH (09:43)
[2019-07-03] MEDS: Hypromellose 0.3% Ophth Soln 15 ML Bottle EYEBOTH SCH ×3 (09:43→19:47)
[2019-07-03] MEDS: Brimonidine 0.2% Ophth Soln 5 ML Bottle EYEBOTH SCH ×2 (09:50→19:50)
[2019-07-03] MEDS: Timolol Maleate 0.5% Ophth Soln 5 ML Bottle EYEBOTH SCH ×2 (09:50→19:49)
[2019-07-03] MEDS: Metoprolol Succinate 50 MG Tab.ER PO SCH (09:53)
[2019-07-03] MEDS: Calcium Citrate/Vitamin D3 315 MG-250 Unit Tab PO SCH ×2 (09:53→17:39)
[2019-07-03] MEDS: Cyanocobalamin (Vitamin B12) 250 MCG Tab PO SCH (09:58)
[2019-07-03] MEDS: Cholecalciferol (Vitamin D3) 25 MCG Tab PO SCH (09:59)
[2019-07-03] MEDS: Polyethylene Glycol 3350 Powder 17 GM Packet PO SCH (10:03)
[2019-07-03] MEDS: Enoxaparin 40 MG/0.4 ML Syringe SUBCUT SCH (10:05)
[2019-07-03] MEDS: Lisinopril 5 MG Tab PO SCH (19:48)
[2019-07-03] MEDS: Latanoprost 0.005% Ophth Soln 2.5 ML Bottle EYEBOTH SCH (19:49)
[2019-07-04] MEDS: Acetaminophen 500 MG Tab PO SCH ×3 (00:01→16:54)
[2019-07-04] MEDS: Polyethylene Glycol 3350 Powder 17 GM Packet PO SCH (08:05)
[2019-07-04] MEDS: Calcium Citrate/Vitamin D3 315 MG-250 Unit Tab PO SCH ×2 (08:06→18:15)
[2019-07-04] MEDS: Cholecalciferol (Vitamin D3) 25 MCG Tab PO SCH (08:06)
[2019-07-04] MEDS: Cyanocobalamin (Vitamin B12) 250 MCG Tab PO SCH (08:06)
[2019-07-04] MEDS: Enoxaparin 40 MG/0.4 ML Syringe SUBCUT SCH (08:07)
[2019-07-04] MEDS: Metoprolol Succinate 50 MG Tab.ER PO SCH (08:09)
[2019-07-04] MEDS: Timolol Maleate 0.5% Ophth Soln 5 ML Bottle EYEBOTH SCH ×2 (08:11→19:47)
[2019-07-04] MEDS: Hypromellose 0.3% Ophth Soln 15 ML Bottle EYEBOTH SCH ×2 (08:11→19:46)
[2019-07-04] MEDS: Brimonidine 0.2% Ophth Soln 5 ML Bottle EYEBOTH SCH ×2 (08:12→19:46)
--- NOTE | 2019-07-04 16:30 | PN ---
Progress Note for RAVEN HERNANDEZ Date: 07/04/2019 Room #: VM.214 HISTORY OF PRESENT ILLNESS: An 88-year-old seen today on swing bed rounds. The patient is resting. She reports that she has gotten up today and moved around. She is working with PT, OT, has discontinued services due to her dementia and memory impairment. She has a hard time staying on task. Otherwise, she states she has some pain in her stomach, but denies any diarrhea. She denied hip pain, but when I started to palpate it, she said it was sore. She has still significant bruising there, but it appears the swelling has come down. She did get her last dose of oxycodone 2 days ago. Otherwise, she did fail voiding and required recurrent straight caths of even over a liter. Therefore, Nye has been placed. OBJECTIVE: Vital Signs: Today, the patient's temperature was 96.8, pulse 92, blood pressure 117/65, respiratory rate 19, and O2 of 96 on room air. Weight 59.3 kg. General: She was in no acute distress. She was resting in bed. Heart: Regular rate and rhythm. Lungs: Her lung sounds were clear to auscultation bilaterally without crackles or wheezes. Extremities: Warm and dry. No edema, but bruising over that right thigh. Abdomen: Nontender. Mental Status: She was unable to answer orientation questions. ASSESSMENT AND PLAN: 1. Right hip fracture, status post TFN procedure on 06/25. She is working with therapies. 2. Acute blood loss anemia after surgery. Expected hemoglobin has improved on her recent lab work up to 9.2. She has not required any transfusion. 3. Urinary retention. Nye in place. This is probably related to limited mobility after her hip surgery. We will leave the Nye in at least a few days and then try a voiding trial. Will check a UA due to recent UTI. 4. Hypokalemia, resolved with oral replacements. We will repeat lab work next Wednesday. 5. Essential hypertension. We will continue her blood pressure medications, Toprol and lisinopril. 6. DVT prophylaxis, she is on Lovenox. 7. Delirium with underlying dementia. She has not required any Seroquel in the last several days. 8. Hyponatremia. Recent sodium has moved into the normal range. 9. Glaucoma, on eye drops. PLAN: At this point, patient will continue swing bed cares with PT. She will continue Lovenox until 07/23. We stopped her potassium supplements and we will repeat lab work next week. We will continue the Nye for several days and then try a voiding trial. She will also continue with a bowel regimen. MKA: 07/04/2019 15:44:08 MODL: 07/04/2019 16:26:42 /[id number] MTDGermain
[2019-07-04] MEDS: Lisinopril 5 MG Tab PO SCH (19:45)
[2019-07-04] MEDS: Latanoprost 0.005% Ophth Soln 2.5 ML Bottle EYEBOTH SCH (19:47)
[2019-07-05] MEDS: Acetaminophen 500 MG Tab PO SCH ×3 (01:12→20:28)
[2019-07-05] MEDS: Metoprolol Succinate 50 MG Tab.ER PO SCH (08:10)
[2019-07-05] MEDS: Cyanocobalamin (Vitamin B12) 250 MCG Tab PO SCH (08:11)
[2019-07-05] MEDS: Calcium Citrate/Vitamin D3 315 MG-250 Unit Tab PO SCH ×2 (08:13→17:21)
[2019-07-05] MEDS: Cholecalciferol (Vitamin D3) 25 MCG Tab PO SCH (08:13)
[2019-07-05] MEDS: Brimonidine 0.2% Ophth Soln 5 ML Bottle EYEBOTH SCH ×2 (08:15→20:26)
[2019-07-05] MEDS: Hypromellose 0.3% Ophth Soln 15 ML Bottle EYEBOTH SCH ×2 (08:16→20:27)
[2019-07-05] MEDS: Timolol Maleate 0.5% Ophth Soln 5 ML Bottle EYEBOTH SCH ×2 (08:16→20:26)
[2019-07-05] MEDS: Enoxaparin 40 MG/0.4 ML Syringe SUBCUT SCH (08:16)
[2019-07-05] MEDS: Polyethylene Glycol 3350 Powder 17 GM Packet PO SCH (08:16)
[2019-07-05] MEDS: Acetaminophen 325 MG Tab PO PRN ×2 (13:28→17:23)
[2019-07-05] MEDS: Lisinopril 5 MG Tab PO SCH (20:26)
[2019-07-05] MEDS: Latanoprost 0.005% Ophth Soln 2.5 ML Bottle EYEBOTH SCH (20:27)
[2019-07-06] MEDS: Enoxaparin 40 MG/0.4 ML Syringe SUBCUT SCH (09:46)
[2019-07-06] MEDS: Acetaminophen 500 MG Tab PO SCH ×2 (09:47→21:13)
[2019-07-06] MEDS: Calcium Citrate/Vitamin D3 315 MG-250 Unit Tab PO SCH ×2 (09:49→21:14)
[2019-07-06] MEDS: Metoprolol Succinate 50 MG Tab.ER PO SCH (09:49)
[2019-07-06] MEDS: Polyethylene Glycol 3350 Powder 17 GM Packet PO SCH (09:50)
[2019-07-06] MEDS: Hypromellose 0.3% Ophth Soln 15 ML Bottle EYEBOTH SCH ×2 (09:50→21:18)
[2019-07-06] MEDS: Cyanocobalamin (Vitamin B12) 250 MCG Tab PO SCH (09:50)
[2019-07-06] MEDS: Cholecalciferol (Vitamin D3) 25 MCG Tab PO SCH (09:50)
[2019-07-06] MEDS: Brimonidine 0.2% Ophth Soln 5 ML Bottle EYEBOTH SCH ×2 (09:51→21:11)
[2019-07-06] MEDS: Timolol Maleate 0.5% Ophth Soln 5 ML Bottle EYEBOTH SCH ×2 (09:56→21:12)
[2019-07-06] MEDS: Lisinopril 5 MG Tab PO SCH (21:14)
[2019-07-06] MEDS: Latanoprost 0.005% Ophth Soln 2.5 ML Bottle EYEBOTH SCH (21:18)
[2019-07-06] MEDS: Melatonin 3 MG Tab PO PRN (23:00)
[2019-07-07] MEDS: Enoxaparin 40 MG/0.4 ML Syringe SUBCUT SCH (09:06)
[2019-07-07] MEDS: Acetaminophen 500 MG Tab PO SCH ×2 (09:06→20:56)
[2019-07-07] MEDS: Metoprolol Succinate 50 MG Tab.ER PO SCH (09:07)
[2019-07-07] MEDS: Cholecalciferol (Vitamin D3) 25 MCG Tab PO SCH (09:07)
[2019-07-07] MEDS: Calcium Citrate/Vitamin D3 315 MG-250 Unit Tab PO SCH ×2 (09:07→18:10)
[2019-07-07] MEDS: Cyanocobalamin (Vitamin B12) 250 MCG Tab PO SCH (09:07)
[2019-07-07] MEDS: Brimonidine 0.2% Ophth Soln 5 ML Bottle EYEBOTH SCH ×2 (09:09→20:50)
[2019-07-07] MEDS: Hypromellose 0.3% Ophth Soln 15 ML Bottle EYEBOTH SCH ×2 (09:09→20:57)
[2019-07-07] MEDS: Polyethylene Glycol 3350 Powder 17 GM Packet PO SCH (09:09)
[2019-07-07] MEDS: Timolol Maleate 0.5% Ophth Soln 5 ML Bottle EYEBOTH SCH ×2 (09:10→20:50)
[2019-07-07] MEDS: Lisinopril 5 MG Tab PO SCH (20:55)
[2019-07-07] MEDS: Melatonin 3 MG Tab PO PRN (20:55)
[2019-07-07] MEDS: Latanoprost 0.005% Ophth Soln 2.5 ML Bottle EYEBOTH SCH (20:57)
[2019-07-08] MEDS: Acetaminophen 325 MG Tab PO PRN (06:15)
[2019-07-08] MEDS: Calcium Citrate/Vitamin D3 315 MG-250 Unit Tab PO SCH ×2 (08:16→18:11)
[2019-07-08] MEDS: Polyethylene Glycol 3350 Powder 17 GM Packet PO SCH (08:16)
[2019-07-08] MEDS: Cholecalciferol (Vitamin D3) 25 MCG Tab PO SCH (08:17)
[2019-07-08] MEDS: Metoprolol Succinate 50 MG Tab.ER PO SCH (08:17)
[2019-07-08] MEDS: Cyanocobalamin (Vitamin B12) 250 MCG Tab PO SCH (08:17)
[2019-07-08] MEDS: Acetaminophen 500 MG Tab PO SCH ×2 (08:17→20:38)
[2019-07-08] MEDS: Enoxaparin 40 MG/0.4 ML Syringe SUBCUT SCH (08:18)
[2019-07-08] MEDS: Hypromellose 0.3% Ophth Soln 15 ML Bottle EYEBOTH SCH ×2 (08:19→20:39)
[2019-07-08] MEDS: Timolol Maleate 0.5% Ophth Soln 5 ML Bottle EYEBOTH SCH ×2 (08:20→20:32)
[2019-07-08] MEDS: Brimonidine 0.2% Ophth Soln 5 ML Bottle EYEBOTH SCH ×2 (08:20→20:33)
[2019-07-08] MEDS: Lisinopril 5 MG Tab PO SCH (20:38)
[2019-07-08] MEDS: Latanoprost 0.005% Ophth Soln 2.5 ML Bottle EYEBOTH SCH (20:39)
[2019-07-09] MEDS: Polyethylene Glycol 3350 Powder 17 GM Packet PO SCH (09:49)
[2019-07-09] MEDS: Enoxaparin 40 MG/0.4 ML Syringe SUBCUT SCH (09:49)
[2019-07-09] MEDS: Cyanocobalamin (Vitamin B12) 250 MCG Tab PO SCH (09:50)
[2019-07-09] MEDS: Acetaminophen 500 MG Tab PO SCH ×2 (09:50→19:48)
[2019-07-09] MEDS: Metoprolol Succinate 50 MG Tab.ER PO SCH (09:51)
[2019-07-09] MEDS: Cholecalciferol (Vitamin D3) 25 MCG Tab PO SCH (09:52)
[2019-07-09] MEDS: Calcium Citrate/Vitamin D3 315 MG-250 Unit Tab PO SCH ×2 (09:52→17:25)
[2019-07-09] MEDS: Timolol Maleate 0.5% Ophth Soln 5 ML Bottle EYEBOTH SCH ×2 (09:53→19:49)
[2019-07-09] MEDS: Hypromellose 0.3% Ophth Soln 15 ML Bottle EYEBOTH SCH ×2 (09:53→19:50)
[2019-07-09] MEDS: Brimonidine 0.2% Ophth Soln 5 ML Bottle EYEBOTH SCH ×2 (09:54→19:49)
[2019-07-09] MEDS: Lisinopril 5 MG Tab PO SCH (19:48)
[2019-07-09] MEDS: Latanoprost 0.005% Ophth Soln 2.5 ML Bottle EYEBOTH SCH (19:49)
[2019-07-10] MEDS: Acetaminophen 325 MG Tab PO PRN (05:51)
[2019-07-10] MEDS: Hypromellose 0.3% Ophth Soln 15 ML Bottle EYEBOTH SCH ×2 (07:31→19:19)
[2019-07-10] MEDS: Calcium Citrate/Vitamin D3 315 MG-250 Unit Tab PO SCH ×2 (07:31→18:55)
[2019-07-10] MEDS: Brimonidine 0.2% Ophth Soln 5 ML Bottle EYEBOTH SCH ×2 (07:31→20:42)
[2019-07-10] MEDS: Enoxaparin 40 MG/0.4 ML Syringe SUBCUT SCH (07:32)
[2019-07-10] MEDS: Timolol Maleate 0.5% Ophth Soln 5 ML Bottle EYEBOTH SCH ×2 (07:33→20:42)
[2019-07-10] MEDS: Polyethylene Glycol 3350 Powder 17 GM Packet PO SCH (07:33)
[2019-07-10] MEDS: Metoprolol Succinate 50 MG Tab.ER PO SCH (07:34)
[2019-07-10] MEDS: Acetaminophen 500 MG Tab PO SCH ×2 (07:35→19:16)
[2019-07-10] MEDS: Cyanocobalamin (Vitamin B12) 250 MCG Tab PO SCH (07:37)
[2019-07-10] MEDS: Cholecalciferol (Vitamin D3) 25 MCG Tab PO SCH (07:38)
[2019-07-10 07:49] LABS: ANION GAP 10.9 mmol/L (10-20)
--- NOTE | 2019-07-10 09:57 | PN ---
Progress Note for RAVEN HERNANDEZ Date: 07/09/2019 Room #: VM.214 SUBJECTIVE: This is an 88-year-old, on swing bed after a right hip fracture. She denies any pain in the hip. She feels like she needs to have a bowel movement or go to the bathroom now. She did not recognize me. She does have underlying dementia. She has not had any trouble breathing. She is eating 50% to 75% of her meals. OBJECTIVE: Vital Signs: Her temperature is 97.6, pulse 78, blood pressure 156/62, respiratory rate 17, O2 of 100% on room air. General: She is in no acute distress. Musculoskeletal: The right hip is examined. The incisions are well healed. There is no significant swelling or tenderness. She has no calf tenderness. She has been on Lovenox for deep vein thrombosis prophylaxis. LABORATORY DATA: Lab work reviewed today does show her white count normal at 9.7, hemoglobin 11, platelets 352. Sodium 135, potassium 3.9, chloride 100, bicarb 28, BUN 11, creatinine 0.9, glucose 84. ASSESSMENT AND PLAN: 1. Status post right hip fracture, working with therapies. 2. Urinary retention. She was doing bladder retraining over the weekend. She was having the urge to void. We removed the Nye yesterday. Bladder scan during the night was for 500. She was straight catheterized for around 300. We will plan on bladder scanning today. If she requires 3 more straight caths, we will replace the Nye. 3. Blood loss anemia after surgery. Hemoglobin is now stable. We will continue to monitor. 4. Essential hypertension. Blood pressure mildly elevated. She is on her Toprol and lisinopril. We will continue to monitor. 5. Deep vein thrombosis prophylaxis, on Lovenox. 6. Dementia. 7. Glaucoma. PLAN: At this point, the patient will continue on swing bed cares and work with therapies. We will continue to straight cath if needed and replace the Nye if she is unable to void. Last time, her residuals were over 1000. This time, they are down to 500, so there has been some improvement. MKA: 07/10/2019 09:06:06 MODL: 07/10/2019 09:46:34 /[id number]
[2019-07-10] MEDS: Lisinopril 5 MG Tab PO SCH (19:17)
[2019-07-10] MEDS: Latanoprost 0.005% Ophth Soln 2.5 ML Bottle EYEBOTH SCH (20:53)
[2019-07-11] MEDS: QUEtiapine 25 MG Tab PO PRN (01:17)
[2019-07-11] MEDS: Acetaminophen 325 MG Tab PO PRN (02:08)
[2019-07-11] MEDS: Cholecalciferol (Vitamin D3) 25 MCG Tab PO SCH (07:55)
[2019-07-11] MEDS: Calcium Citrate/Vitamin D3 315 MG-250 Unit Tab PO SCH ×2 (07:55→17:53)
[2019-07-11] MEDS: Acetaminophen 500 MG Tab PO SCH ×2 (07:55→21:02)
[2019-07-11] MEDS: Cyanocobalamin (Vitamin B12) 250 MCG Tab PO SCH (07:55)
[2019-07-11] MEDS: Polyethylene Glycol 3350 Powder 17 GM Packet PO SCH (07:56)
[2019-07-11] MEDS: Hypromellose 0.3% Ophth Soln 15 ML Bottle EYEBOTH SCH ×2 (07:56→21:03)
[2019-07-11] MEDS: Enoxaparin 40 MG/0.4 ML Syringe SUBCUT SCH (07:56)
[2019-07-11] MEDS: Timolol Maleate 0.5% Ophth Soln 5 ML Bottle EYEBOTH SCH ×2 (07:56→21:04)
[2019-07-11] MEDS: Metoprolol Succinate 50 MG Tab.ER PO SCH (07:57)
[2019-07-11] MEDS: Brimonidine 0.2% Ophth Soln 5 ML Bottle EYEBOTH SCH ×2 (07:57→21:04)
--- NOTE | 2019-07-11 18:56 | PN ---
Progress Note for RAVEN HERNANDEZ Date: 07/11/2019 Room #: VM.214 SUBJECTIVE: This is an 88-year-old on swing bed after a right hip fracture. She has been very sleepy today, but did get a 6.25 mg dose of Seroquel around 1 a.m. for restlessness. She was having urinary retention last night, required straight cath. Orders were to place a Nye and straight cath x3, which was done. Bladder scans were in the 400 to 500 range, straight cath was over 300 on multiple occasions. She is denying any abdominal pain or burning with urination, just has some pain in that right hip. She is not having any cough or shortness of breath. OBJECTIVE: Vital Signs: Her temperature 97.3, pulse 86, blood pressure 115/44, respiratory rate 20, O2 of 97 on room air. General: She is in no acute distress. Heart: Regular, rate and rhythm without murmur noted. Lungs: Sounds are clear to auscultation bilaterally without crackles or wheezes. Abdomen: Nondistended, nontender. Extremities: Warm and dry. She does have some bruising still and tenderness over that right hip. Incision is mildly just slightly open, but no drainage or redness. One Steri-Strips still in place. Mental Status: She is alert that she is at the hospital, but unable to give me the date. ASSESSMENT: 1. Right hip fracture, status post trochanteric fixation nail procedure on 06/25, working with therapies. 2. Acute blood loss anemia after surgery, she did not require transfusion. Her hemoglobin yesterday was up to 11. 3. Urinary retention. Nye has been replaced due to multiple straight caths. We will likely do bladder retraining and try another voiding attempt next week. 4. Hypokalemia. She had this replaced. 5. Essential hypertension, controlled. 6. Deep venous thrombosis prophylaxis, on Lovenox. 7. Delirium with underlying dementia and restlessness during the night. I have discontinued the Seroquel, that is like the only dose she had since she was here. Could consider even a half 0.25 dose of Xanax, but would just try redirection. I think her symptoms last night were due to the urinary retention. 8. Hyponatremia, resolved. 9. Glaucoma, on eye drops. PLAN: At this point, the patient will continue on swing bed cares and continue to work with therapies. I have been notified that she likely will not be discharged in the next 2 weeks. Therefore, we have plenty of time to do voiding trials. She will also continue on her bowel regimen. Bowel movements are being charted. MKA: 07/11/2019 17:39:23 MODL: 07/11/2019 18:52:29 /[id number] MTDD
[2019-07-11] MEDS: Lisinopril 5 MG Tab PO SCH (21:01)
[2019-07-11] MEDS: Melatonin 3 MG Tab PO PRN (21:02)
[2019-07-11] MEDS: Latanoprost 0.005% Ophth Soln 2.5 ML Bottle EYEBOTH SCH (21:05)
[2019-07-12] MEDS: Brimonidine 0.2% Ophth Soln 5 ML Bottle EYEBOTH SCH ×2 (08:09→19:45)
[2019-07-12] MEDS: Calcium Citrate/Vitamin D3 315 MG-250 Unit Tab PO SCH ×2 (08:09→17:25)
[2019-07-12] MEDS: Hypromellose 0.3% Ophth Soln 15 ML Bottle EYEBOTH SCH ×2 (08:10→19:45)
[2019-07-12] MEDS: Enoxaparin 40 MG/0.4 ML Syringe SUBCUT SCH (08:11)
[2019-07-12] MEDS: Polyethylene Glycol 3350 Powder 17 GM Packet PO SCH (08:11)
[2019-07-12] MEDS: Metoprolol Succinate 50 MG Tab.ER PO SCH (08:12)
[2019-07-12] MEDS: Timolol Maleate 0.5% Ophth Soln 5 ML Bottle EYEBOTH SCH ×2 (08:12→19:46)
[2019-07-12] MEDS: Acetaminophen 500 MG Tab PO SCH ×2 (08:17→19:52)
[2019-07-12] MEDS: Cholecalciferol (Vitamin D3) 25 MCG Tab PO SCH (08:18)
[2019-07-12] MEDS: Cyanocobalamin (Vitamin B12) 250 MCG Tab PO SCH (08:18)
[2019-07-12] MEDS: Latanoprost 0.005% Ophth Soln 2.5 ML Bottle EYEBOTH SCH (19:44)
[2019-07-12] MEDS: Lisinopril 5 MG Tab PO SCH (19:52)
[2019-07-12] MEDS: Melatonin 3 MG Tab PO PRN (23:00)
[2019-07-13] MEDS: Acetaminophen 325 MG Tab PO PRN (01:22)
[2019-07-13] MEDS: Brimonidine 0.2% Ophth Soln 5 ML Bottle EYEBOTH SCH ×2 (08:07→20:00)
[2019-07-13] MEDS: Timolol Maleate 0.5% Ophth Soln 5 ML Bottle EYEBOTH SCH ×2 (08:07→20:01)
[2019-07-13] MEDS: Hypromellose 0.3% Ophth Soln 15 ML Bottle EYEBOTH SCH ×2 (08:07→20:00)
[2019-07-13] MEDS: Enoxaparin 40 MG/0.4 ML Syringe SUBCUT SCH (08:07)
[2019-07-13] MEDS: Acetaminophen 500 MG Tab PO SCH ×2 (08:08→20:01)
[2019-07-13] MEDS: Calcium Citrate/Vitamin D3 315 MG-250 Unit Tab PO SCH ×2 (08:08→18:45)
[2019-07-13] MEDS: Cholecalciferol (Vitamin D3) 25 MCG Tab PO SCH (08:08)
[2019-07-13] MEDS: Metoprolol Succinate 50 MG Tab.ER PO SCH (08:08)
[2019-07-13] MEDS: Cyanocobalamin (Vitamin B12) 250 MCG Tab PO SCH (08:08)
[2019-07-13] MEDS: Polyethylene Glycol 3350 Powder 17 GM Packet PO SCH (08:08)
--- NOTE | 2019-07-13 17:45 | PN ---
Progress Note for RAVEN HERNANDEZ Date: 07/13/2019 Room #: VM.214 HISTORY OF PRESENT ILLNESS: An 88-year-old seen today for followup. I visited with the patient today. She was quite sleepy. She was hardly awaking to eat lunch but did eat 100% of breakfast. She told me her mouth was dry, so she did drink some milk. She is still having pain in that right hip area, but not severe. She is getting Tylenol. She still has some bruising and swelling there. Discussed with her daughter, Eva, and son, Dong, that last time she got Seroquel down in [place], it took her like 4 days to recover. Prior to this over the weekend on Wednesday, her daughter stated she was up, more alert, she was visiting with her. The patient has been afebrile. She is not having any shortness of breath or cough. She had lab work on Wednesday that looked okay, normal white count. Sodium up to 135, hemoglobin up to 11. Kidney function was excellent. OBJECTIVE: Vital Signs: Her temperature 98.4, pulse 89, blood pressure 149/80, respiratory rate 18, O2 of 97% on room air. General: She is in no acute distress, Heart: Regular rate and rhythm. Lungs: Lung sounds are clear to auscultation bilaterally without crackles or wheezes. Abdomen: Positive bowel sounds. Nondistended. Extremities: Warm and dry. She has just trace edema in her lower extremities, but the right thigh still has some swelling and bruising. Incision is well healed. Neurologic: She is not alert enough to answer her orientation questions today. ASSESSMENT AND PLAN: 1. Somnolence, presumably due to her Seroquel, even though the dose is only 6.25. We will see how she does. Hopefully, she wakes up in another day or 2. If she continues to have severe somnolence, I would repeat her lab work prior to Wednesday. Otherwise, we will just encourage p.o. intake. She is already off pain medications. 2. Right hip fracture, status post trochanteric fixation nail procedure on 06/25, she is working with therapy. 3. Acute blood loss anemia after surgery. Hemoglobin has improved. 4. Urinary retention. Her Nye has had to be replaced. She is not having any fever or bladder symptoms, but if sedation continues, could consider UA due to the retention. Previous UA was normal. 5. Essential hypertension. She is having some mildly elevated blood pressure. She is on lisinopril. We will consider increasing the dose if her readings consistently over 150. We would avoid diuretics as she is having decreased intake due to somnolence so I do not want her to get dehydrated. 6. Delirium with underlying dementia. Right now, she is quite somnolent. We would avoid further sedating medications. Family is willing to come up if she gets restless. 7. Glaucoma, on eye drops. PLAN: At this point, the patient will continue swing bed cares, will work with therapy. Discussed with her family. If needed, we will consider transition over to a group home or even home with family care should there be any outbreaks of other medical conditions. We will continue to encourage oral intake. Lab Wednesday MKA: 07/13/2019 16:54:26 MODL: 07/13/2019 17:39:14 /[id number] DOROTEO
[2019-07-13] MEDS: Lisinopril 5 MG Tab PO SCH (20:01)
[2019-07-13] MEDS: Latanoprost 0.005% Ophth Soln 2.5 ML Bottle EYEBOTH SCH (20:02)
[2019-07-14] MEDS: Acetaminophen 500 MG Tab PO SCH ×2 (08:03→19:47)
[2019-07-14] MEDS: Cyanocobalamin (Vitamin B12) 250 MCG Tab PO SCH (08:04)
[2019-07-14] MEDS: Metoprolol Succinate 50 MG Tab.ER PO SCH (08:05)
[2019-07-14] MEDS: Calcium Citrate/Vitamin D3 315 MG-250 Unit Tab PO SCH ×4 (08:05→19:54)
[2019-07-14] MEDS: Cholecalciferol (Vitamin D3) 25 MCG Tab PO SCH (08:05)
[2019-07-14] MEDS: Enoxaparin 40 MG/0.4 ML Syringe SUBCUT SCH (08:07)
[2019-07-14] MEDS: Hypromellose 0.3% Ophth Soln 15 ML Bottle EYEBOTH SCH ×2 (08:12→19:55)
[2019-07-14] MEDS: Brimonidine 0.2% Ophth Soln 5 ML Bottle EYEBOTH SCH ×2 (08:12→19:55)
[2019-07-14] MEDS: Polyethylene Glycol 3350 Powder 17 GM Packet PO SCH (08:14)
[2019-07-14] MEDS: Timolol Maleate 0.5% Ophth Soln 5 ML Bottle EYEBOTH SCH ×2 (08:15→19:55)
[2019-07-14] MEDS: Melatonin 3 MG Tab PO PRN (19:47)
[2019-07-14] MEDS: Lisinopril 5 MG Tab PO SCH (19:47)
[2019-07-14] MEDS: Latanoprost 0.005% Ophth Soln 2.5 ML Bottle EYEBOTH SCH (19:55)
[2019-07-15] MEDS: Cholecalciferol (Vitamin D3) 25 MCG Tab PO SCH (08:20)
[2019-07-15] MEDS: Metoprolol Succinate 50 MG Tab.ER PO SCH (08:20)
[2019-07-15] MEDS: Acetaminophen 500 MG Tab PO SCH ×2 (08:21→20:59)
[2019-07-15] MEDS: Cyanocobalamin (Vitamin B12) 250 MCG Tab PO SCH (08:22)
[2019-07-15] MEDS: Calcium Citrate/Vitamin D3 315 MG-250 Unit Tab PO SCH ×2 (08:23→17:44)
[2019-07-15] MEDS: Hypromellose 0.3% Ophth Soln 15 ML Bottle EYEBOTH SCH ×2 (08:23→19:37)
[2019-07-15] MEDS: Enoxaparin 40 MG/0.4 ML Syringe SUBCUT SCH (08:23)
[2019-07-15] MEDS: Timolol Maleate 0.5% Ophth Soln 5 ML Bottle EYEBOTH SCH ×2 (08:23→19:37)
[2019-07-15] MEDS: Brimonidine 0.2% Ophth Soln 5 ML Bottle EYEBOTH SCH ×2 (08:23→19:37)
[2019-07-15] MEDS: Polyethylene Glycol 3350 Powder 17 GM Packet PO SCH (08:24)
[2019-07-15] MEDS: Latanoprost 0.005% Ophth Soln 2.5 ML Bottle EYEBOTH SCH (19:36)
[2019-07-15] MEDS: Lisinopril 5 MG Tab PO SCH (19:38)
[2019-07-15] MEDS: Melatonin 3 MG Tab PO PRN (22:48)
[2019-07-16] MEDS: Enoxaparin 40 MG/0.4 ML Syringe SUBCUT SCH (08:55)
[2019-07-16] MEDS: Hypromellose 0.3% Ophth Soln 15 ML Bottle EYEBOTH SCH ×2 (08:55→20:43)
[2019-07-16] MEDS: Brimonidine 0.2% Ophth Soln 5 ML Bottle EYEBOTH SCH ×2 (08:56→20:43)
[2019-07-16] MEDS: Timolol Maleate 0.5% Ophth Soln 5 ML Bottle EYEBOTH SCH ×2 (08:56→20:44)
[2019-07-16] MEDS: Metoprolol Succinate 50 MG Tab.ER PO SCH (08:56)
[2019-07-16] MEDS: Cholecalciferol (Vitamin D3) 25 MCG Tab PO SCH (08:57)
[2019-07-16] MEDS: Cyanocobalamin (Vitamin B12) 250 MCG Tab PO SCH (08:57)
[2019-07-16] MEDS: Acetaminophen 500 MG Tab PO SCH ×2 (08:57→20:44)
[2019-07-16] MEDS: Calcium Citrate/Vitamin D3 315 MG-250 Unit Tab PO SCH ×2 (08:58→18:07)
[2019-07-16] MEDS: Polyethylene Glycol 3350 Powder 17 GM Packet PO SCH (08:58)
[2019-07-16] MEDS: Lisinopril 5 MG Tab PO SCH (20:43)
[2019-07-16] MEDS: Latanoprost 0.005% Ophth Soln 2.5 ML Bottle EYEBOTH SCH (20:43)
[2019-07-16] MEDS: Melatonin 3 MG Tab PO PRN (20:43)
[2019-07-17 07:04] LABS: CHLORIDE,CL 102 mmol/L (98-107); SODIUM,NA 137 mmol/L (136-145)
[2019-07-17 07:05] LABS: ANION GAP 12.2 mmol/L (10-20)
[2019-07-17] MEDS: Enoxaparin 40 MG/0.4 ML Syringe SUBCUT SCH (07:50)
[2019-07-17] MEDS: Hypromellose 0.3% Ophth Soln 15 ML Bottle EYEBOTH SCH ×2 (07:50→19:53)
[2019-07-17] MEDS: Metoprolol Succinate 50 MG Tab.ER PO SCH (07:51)
[2019-07-17] MEDS: Calcium Citrate/Vitamin D3 315 MG-250 Unit Tab PO SCH ×2 (07:51→17:34)
[2019-07-17] MEDS: Cholecalciferol (Vitamin D3) 25 MCG Tab PO SCH (07:52)
[2019-07-17] MEDS: Cyanocobalamin (Vitamin B12) 250 MCG Tab PO SCH (07:52)
[2019-07-17] MEDS: Timolol Maleate 0.5% Ophth Soln 5 ML Bottle EYEBOTH SCH ×2 (07:54→19:53)
[2019-07-17] MEDS: Brimonidine 0.2% Ophth Soln 5 ML Bottle EYEBOTH SCH ×2 (07:55→19:53)
[2019-07-17] MEDS: Polyethylene Glycol 3350 Powder 17 GM Packet PO SCH (07:56)
[2019-07-17] MEDS: Acetaminophen 500 MG Tab PO SCH ×2 (07:57→19:50)
[2019-07-17] MEDS: Melatonin 3 MG Tab PO PRN (19:50)
[2019-07-17] MEDS: Lisinopril 5 MG Tab PO SCH (19:51)
[2019-07-17] MEDS: Latanoprost 0.005% Ophth Soln 2.5 ML Bottle EYEBOTH SCH (19:52)
[2019-07-18] MEDS: Metoprolol Succinate 50 MG Tab.ER PO SCH (08:06)
[2019-07-18] MEDS: Calcium Citrate/Vitamin D3 315 MG-250 Unit Tab PO SCH ×2 (08:06→17:31)
[2019-07-18] MEDS: Enoxaparin 40 MG/0.4 ML Syringe SUBCUT SCH (08:06)
[2019-07-18] MEDS: Polyethylene Glycol 3350 Powder 17 GM Packet PO SCH (08:06)
[2019-07-18] MEDS: Cyanocobalamin (Vitamin B12) 250 MCG Tab PO SCH (08:06)
[2019-07-18] MEDS: Acetaminophen 500 MG Tab PO SCH ×2 (08:08→19:42)
[2019-07-18] MEDS: Cholecalciferol (Vitamin D3) 25 MCG Tab PO SCH (08:08)
[2019-07-18] MEDS: Hypromellose 0.3% Ophth Soln 15 ML Bottle EYEBOTH SCH ×2 (08:09→19:43)
[2019-07-18] MEDS: Brimonidine 0.2% Ophth Soln 5 ML Bottle EYEBOTH SCH ×2 (08:10→19:44)
[2019-07-18] MEDS: Timolol Maleate 0.5% Ophth Soln 5 ML Bottle EYEBOTH SCH ×2 (08:12→19:43)
[2019-07-18] MEDS: Lisinopril 5 MG Tab PO SCH (19:42)
[2019-07-18] MEDS: Latanoprost 0.005% Ophth Soln 2.5 ML Bottle EYEBOTH SCH (19:44)
[2019-07-19] MEDS: Calcium Citrate/Vitamin D3 315 MG-250 Unit Tab PO SCH (07:59)
[2019-07-19] MEDS: Cyanocobalamin (Vitamin B12) 250 MCG Tab PO SCH (07:59)
[2019-07-19] MEDS: Acetaminophen 500 MG Tab PO SCH (08:00)
[2019-07-19] MEDS: Cholecalciferol (Vitamin D3) 25 MCG Tab PO SCH (08:00)
[2019-07-19] MEDS: Hypromellose 0.3% Ophth Soln 15 ML Bottle EYEBOTH SCH (08:02)
[2019-07-19] MEDS: Polyethylene Glycol 3350 Powder 17 GM Packet PO SCH (08:03)
[2019-07-19] MEDS: Brimonidine 0.2% Ophth Soln 5 ML Bottle EYEBOTH SCH (08:03)
[2019-07-19] MEDS: Timolol Maleate 0.5% Ophth Soln 5 ML Bottle EYEBOTH SCH (08:04)
[2019-07-19] MEDS: Enoxaparin 40 MG/0.4 ML Syringe SUBCUT SCH (08:07)
[2019-07-19] MEDS: Metoprolol Succinate 50 MG Tab.ER PO SCH (08:07)
--- NOTE | 2019-07-19 15:39 | PCM.DCSUM1 ---
Discharge Summary - Hospital Course Free Text/Narrative:: Patient was admitted to swing bed after left hip fracture. She met her PT goals. Wound is clean. Can follow-up with orthopedics and/or x-ray and PT as outpatient. She'd have issues with urination here, she still has a Nye in place, they plan on doing some bladder rehab starting next week. She had postop anemia, follow-up hemoglobins here showed was coming up appropriately without fully normalizing yet. She has some chronic dementia issues made worse by her recent hospitalization. She will be going to the [facility] for at least short-term rehab if not indefinitely. Not requiring any narcotics for pain currently, she will get some scheduled Tylenol. Diagnosis: Stroke: No - Discharge Data Discharge Date: 07/19/19 Discharge Disposition: DC/Tfer to [facility] 03 Condition: Fair - Referral to Home Health Primary Care Physician: Delmis Lobo, DO - Patient Summary/Data Consults: Consultations 06/28/19 14:24 Consult to Physical Therapy [PT Evaluation and Treatment] [CONS] Routine 06/28/19 14:25 Consult to Case Management/Service Station Console Operator [CONS] Routine OT Evaluation and Treatment [CONS] Routine 07/10/19 08:07 Consult to Speech Language Pathology [RESIDENTIAL INSTALLER Evaluation and Treatment] [CONS] Routine - Discharge Plan *PRESCRIPTION DRUG MONITORING PROGRAM REVIEWED*: No *COPY OF PRESCRIPTION DRUG MONITORING REPORT IN PATIENT BENNIE: No Home Medications: Home Meds Brimonidine/Timolol [Combigan 0.2%/0.5% Ophth Soln] 1 drop EYEBOTH BID 07/17/17 [History] Cyanocobalamin (Vitamin B-12) [B-12] 500 mcg PO DAILY 07/17/17 [History] Latanoprost [Xalatan 0.005% Ophth Soln] 1 drop EYEBOTH BEDTIME 07/17/17 [History ] Metoprolol Succinate [Toprol Xl] 50 mg PO DAILY 07/17/17 [History] cycloSPORINE [Restasis] 1 drop EYEBOTH BID 07/17/17 [History] Ipratropium [place] 2 spray NASBOTH TID 11/13/18 [History] Aspirin [Lo-Dose Aspirin EC] 81 mg PO DAILY 11/14/18 [History] Carboxymethyl/Glycerin/Poly80 [Refresh Optive Advanced Drops] 1 drop OP BID [History] Calcium Citrate/Vitamin D3 [Calcium Cit 315-Vit D3 250 Tab] 1 tab PO BIDMEALS [History] Cholecalciferol (Vitamin D3) [Vitamin D3] 1,000 unit PO DAILY 06/28/19 [History] Melatonin 9 mg PO BEDTIME 06/28/19 [History] polyethylene glycoL 3350 [MiraLAX] 17 gm PO DAILY 06/28/19 [History] Acetaminophen [Tylenol Extra Strength] 1,000 mg PO BID tablet 07/18/19 [Rx] Acetaminophen [Tylenol] 650 mg PO Q4H PRN tablet 07/18/19 [Rx] Docusate Sodium/Sennosides [Senna Plus] 1 tab PO BID tablet 07/18/19 [Rx] lisinopriL [Prinivil] 5 mg PO BEDTIME tablet 07/18/19 [Rx] timoloL maleate [Timoptic 0.5% Ophth Soln] 0 ml EYEBOTH BID bottle 07/18/19 [Rx ] - Discharge Summary/Plan Comment DC Time >30 min.: No - Patient Data Vitals - Most Recent: Last Vital Signs Temp 37.2 C 07/19/19 06:00 Pulse 79 07/19/19 08:07 Resp 18 07/19/19 06:00 BP 140/60 07/19/19 08:07 Pulse Ox 99 07/19/19 06:00 Weight - Most Recent: 61.961 kg I&O - Last 24 hours: Intake & Output 07/19/19 07/19/19 07/19/19 06:59 14:59 22:59 Intake Total 200 240 Output Total 600 Balance -400 240 Med Orders - Current: Current Medications Discontinued Medications Acetaminophen (Tylenol Extra Strength) 1,000 mg PO Q8HR [facility] Last Admin: 07/05/19 09:31 Dose: 1,000 mg Acetaminophen (Tylenol Extra Strength) 1,000 mg PO BID [facility] Last Admin: 07/19/19 08:00 Dose: 1,000 mg Acetaminophen (Tylenol) 650 mg PO Q4H PRN PRN Reason: Pain Last Admin: 07/13/19 01:22 Dose: 650 mg Artificial Tears (Genteal Mild To Moderate Ophth Soln) 0 ml EYEBOTH BID [facility] Last Admin: 07/19/19 08:02 Dose: 1 ea Artificial Tears (Genteal Mild To Moderate Ophth Soln) 1 ml EYEBOTH BID [facility] Last Admin: 07/03/19 09:43 Dose: Not Given Aspirin (Halfprin) 81 mg PO DAILY [facility] Brimonidine Tartrate (Alphagan 0.2% Ophth Soln) 0 ml EYEBOTH BID [facility] Last Admin: 07/19/19 08:03 Dose: 1 ea Calcium Citrate (Calcium Citrate + D) 1 tab PO BIDMEALS [facility] Last Admin: 07/19/19 07:59 Dose: 1 tab Cholecalciferol (Vitamin D3) 25 mcg PO DAILY [facility] Last Admin: 07/19/19 08:00 Dose: 25 mcg Cyanocobalamin (Vitamin B12) 500 mcg PO DAILY [facility] Last Admin: 07/19/19 07:59 Dose: 500 mcg Enoxaparin Sodium (Lovenox) 30 mg SUBCUT Q24H [facility] Stop: 07/24/19 08:01 Last Admin: 06/30/19 07:50 Dose: 30 mg Enoxaparin Sodium (Lovenox) 40 mg SUBCUT Q24H [facility] Stop: 07/24/19 08:01 Last Admin: 07/19/19 08:07 Dose: 40 mg Latanoprost (Xalatan 0.005% Ophth Soln) 0 ml EYEBOTH BEDTIME [facility] Last Admin: 07/18/19 19:44 Dose: 1 ea Lisinopril (Prinivil) 5 mg PO BEDTIME [facility] Last Admin: 07/18/19 19:42 Dose: 5 mg Melatonin (Melatonin) 9 mg PO BEDTIME PRN PRN Reason: Insomnia Last Admin: 07/17/19 19:50 Dose: 9 mg Metoprolol Succinate (Toprol Xl) 50 mg PO DAILY [facility] Last Admin: 07/19/19 08:07 Dose: 50 mg Non-Formulary Medication (Ipratropium [place] [Ipratropium [place]]) 2 spray NASBOTH TID [facility] Last Admin: 06/29/19 05:06 Dose: Not Given Oxycodone HCl (Oxycodone) 2.5 mg PO Q6HR PRN PRN Reason: Pain (moderate 4-6) Last Admin: 07/02/19 21:27 Dose: 2.5 mg Polyethylene Glycol (Miralax) 17 gm PO DAILY [facility] Last Admin: 07/19/19 08:03 Dose: 17 gm Potassium Chloride (Klor-Con M20) 20 meq PO DAILY [facility] Last Admin: 07/03/19 09:43 Dose: Not Given Quetiapine Fumarate (Seroquel) 6.25 mg PO BEDTIME PRN PRN Reason: Agitation Last Admin: 07/11/19 01:17 Dose: 6.25 mg Senna/Docusate Sodium (Senna Plus) 1 tab PO BID [facility] Last Admin: 07/19/19 08:00 Dose: 1 tab Timolol Maleate (Timoptic 0.5% Ophth Soln) 0 ml EYEBOTH BID [facility] Last Admin: 07/19/19 08:04 Dose: 1 ea
== END 2019-07-19 15:15 | DRG 560 ==
LOC: VM.MS 15:09
PROVIDERS: ADMIT Internal Medicine; ATTEND Internal Medicine
DX: S72.144D Nondisplaced intertrochanteric fracture of right femur, subsequent encounter for closed fracture with routine healing (principal); E87.1 Hypo-osmolality and hyponatremia; D62 Acute posthemorrhagic anemia; M85.80 Other specified disorders of bone density and structure, unspecified site; I12.9 Hypertensive chronic kidney disease with stage 1 through stage 4 chronic kidney disease, or unspecified chronic kidney disease; N18.3 Chronic kidney disease, stage 3 (moderate); F03.90 Unspecified dementia, unspecified severity, without behavioral disturbance, psychotic disturbance, mood disturbance, and anxiety; E78.5 Hyperlipidemia, unspecified; R40.0 Somnolence; R33.9 Retention of urine, unspecified; H40.9 Unspecified glaucoma; E87.6 Hypokalemia
CPT/HCPCS: 36415; 51701; 51702; 51798; 80048; 81001; 83735; 85025; 87086; 92526-GN; 92610-GN; 97110-GP; 97116-GP; 97161-GP; 97165-GO; 97530-GP; 97535-GO; A9270-GY; J1650

== ENCOUNTER 2019-08-27 07:59 | Emergency (ER) | payer MEDICARE, MEDICAID ==
[2019-08-27] MEDS ORDERED: fentaNYL 100 MCG/2 ML SDV IVPUSH PRN (08:16)
--- NOTE | 2019-08-27 08:45 | EDM.PDOC ---
ED HPI GENERAL MEDICAL PROBLEM - General Chief Complaint: General Stated Complaint: ER Time Seen by Provider: 08/27/19 08:00 Source of Information: Reports: EMS, Custodial Records History Limitations: Reports: Altered Mental Status - History of Present Illness INITIAL COMMENTS - FREE TEXT/NARRATIVE: Patient presents to ER per EMS after a fall at the correction. She had gotten up around midnight, twisted up in her walker and fell to the floor. Was assisted back to bed. This am, complaining of pain "all over". Had hip fracture in June, repaired and was here in swing bed. Was placed in to the correction in July. She mostly complains of pain in her neck, upper back, right forearm and right hip when moving her. Has history of dementia, unable to relate events of fall. Onset: Today, Sudden Duration: Hour(s): Location: Reports: Neck, Back, Upper Extremity, Right, Lower Extremity, Right Quality: Reports: Ache Improves with: Reports: Rest Worsens with: Reports: Movement Context: Reports: Trauma Associated Symptoms: Reports: Confusion. Denies: Fever/Chills, Nausea/Vomiting Right Lower Arm Pain Score (Numeric/FACES): 8 Right Hip Pain Score (Numeric/FACES): 3 Middle Back Pain Score (Numeric/FACES): 8 - Related Data Allergies Allergy/AdvReac Type Severity Reaction Status Date / Time memantine [From Namenda] Allergy Cannot Verified 08/27/19 09:32 Remember atorvastatin [From Lipitor] AdvReac Nausea and Verified 08/27/19 09:32 Vomiting fenofibrate [From Tricor] AdvReac Nausea Verified 08/27/19 09:32 simvastatin [From Zocor] AdvReac Nausea Verified 08/27/19 09:32 Perrnkm-Ymf-Dhi Reductase AdvReac Nausea Verified 08/27/19 09:32 Inhibitor Home Meds: Home Meds Brimonidine/Timolol [Combigan 0.2%/0.5% Ophth Soln] 1 drop EYEBOTH BID 07/17/17 [History] Cyanocobalamin (Vitamin B-12) [B-12] 500 mcg PO DAILY 07/17/17 [History] Latanoprost [Xalatan 0.005% Ophth Soln] 1 drop EYEBOTH BEDTIME 07/17/17 [History ] Metoprolol Succinate [Toprol Xl] 50 mg PO DAILY 07/17/17 [History] cycloSPORINE [Restasis] 1 drop EYEBOTH BID 07/17/17 [History] Ipratropium [place] 2 spray NASBOTH TID 11/13/18 [History] Aspirin [Lo-Dose Aspirin EC] 81 mg PO DAILY 11/14/18 [History] Carboxymethyl/Glycerin/Poly80 [Refresh Optive Advanced Drops] 1 drop OP BID [History] Calcium Citrate/Vitamin D3 [Calcium Cit 315-Vit D3 250 Tab] 1 tab PO BIDMEALS [History] Cholecalciferol (Vitamin D3) [Vitamin D3] 1,000 unit PO DAILY 06/28/19 [History] Melatonin 9 mg PO BEDTIME 06/28/19 [History] polyethylene glycoL 3350 [MiraLAX] 17 gm PO DAILY 06/28/19 [History] Acetaminophen [Tylenol Extra Strength] 1,000 mg PO BID tablet 07/18/19 [Rx] Acetaminophen [Tylenol] 650 mg PO Q4H PRN tablet 07/18/19 [Rx] Docusate Sodium/Sennosides [Senna Plus] 1 tab PO BID tablet 07/18/19 [Rx] timoloL maleate [Timoptic 0.5% Ophth Soln] 1 drop EYEBOTH BID 08/27/19 [History] Past Medical History HEENT History: Reports: Glaucoma, Other (See Below) Other HEENT History: presbyopia, blepharitis, hereditary corneal dystrophy Cardiovascular History: Reports: High Cholesterol, Hypertension Gastrointestinal History: Reports: Diverticulosis Genitourinary History: Reports: Renal Disease, Urinary Incontinence, UTI, Recurrent Musculoskeletal History: Reports: Osteoarthritis Neurological History: Reports: Alzheimers Disease - Past Surgical History Female Surgical History: Reports: Hysterectomy Social & Family History - Family History Family Medical History: Noncontributory - Tobacco Use Smoking Status *Q: Unknown Ever Smoked - Caffeine Use Caffeine Use: Reports: Coffee ED ROS GENERAL - Review of Systems Review Of Systems: See Below Constitutional: Denies: Fever, Chills, Malaise, Weakness, Fatigue HEENT: Reports: No Symptoms Respiratory: Denies: Shortness of Breath, Cough Cardiovascular: Denies: Chest Pain GI/Abdominal: Denies: Abdominal Pain, Nausea, Vomiting : Reports: No Symptoms Musculoskeletal: Reports: Leg Pain, Joint Pain Skin: Reports: Bruising Neurological: Reports: Confusion ED EXAM, GENERAL - Physical Exam Exam: See Below Exam Limited By: Altered Mental Status General Appearance: Alert, WD/WN, Mild Distress Eye Exam: Bilateral Eye: PERRL Ears: Normal External Exam, Normal TMs Nose: Normal Inspection, Normal Mucosa Throat/Mouth: Normal Inspection, Normal Oropharynx Head: Normocephalic Neck: Normal Inspection, Supple, Other (c-collar intact) Respiratory/Chest: No Respiratory Distress, Lungs Clear Cardiovascular: Regular Rate, Rhythm GI/Abdominal: Normal Bowel Sounds, Soft, Non-Tender Back Exam: Vertebral Tenderness Extremities: Other (has pain to right forearm and elbow when palpated. Has abrasions to right elbow. Is able to make a fist without pain. ROM to right shoulders intact. Has pain with flexion/extension of right hip. ) Neurological: Alert, Oriented (person and place) Skin Exam: Warm, Dry, Ecchymosis (noted to right hip) Course - Vital Signs Last Recorded V/S: Last Vital Signs Temp 99 F 08/27/19 08:00 Pulse 82 08/27/19 10:42 Resp 16 08/27/19 08:00 BP 196/103 H 08/27/19 10:42 Pulse Ox 94 L 08/27/19 08:00 - Orders/Labs/Meds Orders: Active Orders 24 hr Category Date Time Status CULTURE URINE [RM] Routine Lab 08/27/19 11:46 Received UA W/MICROSCOPIC [URIN] Routine Lab 08/27/19 11:46 Results fentaNYL [Sublimaze] Med 08/27/19 08:16 Active 25 mcg IVPUSH Q2H PRN Medication Orders Fentanyl (Sublimaze) 25 mcg IVPUSH Q2H PRN PRN Reason: Pain Last Admin: 08/27/19 08:21 Dose: 25 mcg Labs: Laboratory Tests 08/27/19 Range/Units 11:46 Urine Color Light yellow (YELLOW) Urine Appearance Cloudy H (CLEAR) Urine pH 7.0 (5.0-8.0) Ur Specific [place] 1.020 Urine Protein Trace H (NEGATIVE) mg/dL Urine Glucose (UA) Negative (NEGATIVE) mg/dL Urine Ketones Negative (NEGATIVE) mg/dL Urine Occult Blood Trace-intact H (NEGATIVE) Urine Nitrite Positive H (NEGATIVE) Urine Bilirubin Negative (NEGATIVE) Urine Urobilinogen 0.2 (0.2) EU/dL Ur Leukocyte Esterase Large H (NEGATIVE) Meds: Medications Generic Name Dose Route Start Last Admin Trade Name Freq PRN Reason Stop Dose Admin Fentanyl 25 mcg 08/27/19 08:16 08/27/19 08:21 Sublimaze IVPUSH 25 mcg Q2H PRN Administration Pain Discontinued Medications Generic Name Dose Route Start Last Admin Trade Name Freq PRN Reason Stop Dose Admin Ceftriaxone Sodium 1 gm 08/27/19 12:06 Rocephin IVPUSH 08/27/19 12:07 STAT ONE Fentanyl 25 mcg 08/27/19 09:12 08/27/19 10:00 Sublimaze IVPUSH 08/27/19 09:13 25 mcg ONETIME ONE Administration Metoprolol Tartrate 5 mg 08/27/19 10:08 08/27/19 10:21 Lopressor IVPUSH 08/27/19 10:09 5 mg ONETIME ONE Administration - Re-Assessments/Exams Free Text/Narrative Re-Assessment/Exam: 08/27/19 0930 Patient returned from having all xrays/CT scans. Complaining of more pain. Orders submitted. 1030-Waiting for reports. Contacted [facility]. Blood pressure still high despite pain meds. Lopressor given 1130- patient restless, removed c-collar per self. Still waiting on reports. Paperwork was resubmitted at 1100 per technical clerk. 1145 Patient up to commode. Does complain of right hip discomfort with transfer. Xrays and CT scan are negative. Blood pressure improved now at 156/94. UA is positive. Called family and informed of all results. Departure - Departure Time of Disposition: 12:10 Disposition: Home, Self-Care 01 Condition: Fair Clinical Impression: Elbow abrasion, Hypertension Contusion, hip Qualifiers: Encounter type: initial encounter Laterality: right Qualified Code(s): S70.01XA - Contusion of right hip, initial encounter UTI (urinary tract infection) Qualifiers: Urinary tract infection type: acute cystitis - Discharge Information *PRESCRIPTION DRUG MONITORING PROGRAM REVIEWED*: No *COPY OF PRESCRIPTION DRUG MONITORING REPORT IN PATIENT BENNIE: No Instructions: Hypertension, Adult, [id number], Urinary Tract Infection, Adult Referrals: Delmis Lobo, [Primary Care Provider] - Forms: ED Department Discharge Additional Instructions: 1. Push fluids 2. Start Bactrim DS one twice a day for 5 days 3. [place] 1 tab every 6 hours as needed for more severe pain, tylenol for lesser pain as needed 4. Keep elbow wound clean and dry. 5. Ice hip for discomfort 6. Monitor blood pressure BID for 7 days~ report concerns to usual provider. Needs am Metoprolol yet to be given. 7. Follow up for ongoing concerns. Sepsis Event Note - Evaluation Sepsis Screening Result: No Definite Risk - Focused Exam Vital Signs: Vital Signs Temp Pulse Pulse Resp BP BP Pulse Ox 08/27/19 10:42 82 196/103 H 08/27/19 10:21 82 186/102 H 08/27/19 10:05 92 184/104 H 08/27/19 10:00 100 204/108 H 08/27/19 09:35 92 198/105 H 08/27/19 08:00 99 F 105 H 16 165/95 H 94 L Date Exam was Performed: 08/27/19 Time Exam was Performed: 12:08 - My Orders Last 24 Hours: My Active Orders 08/27/19 08:16 fentaNYL [Sublimaze] 25 mcg IVPUSH Q2H PRN 08/27/19 11:46 CULTURE URINE [RM] Routine UA W/MICROSCOPIC [URIN] Routine - Assessment/Plan Last 24 Hours: My Active Orders 08/27/19 08:16 fentaNYL [Sublimaze] 25 mcg IVPUSH Q2H PRN 08/27/19 11:46 CULTURE URINE [RM] Routine UA W/MICROSCOPIC [URIN] Routine
[2019-08-27] MEDS ORDERED: fentaNYL 100 MCG/2 ML SDV IVPUSH ONE (09:12)
[2019-08-27] MEDS ORDERED: Metoprolol Tartrate 5 MG/5 ML SDV IVPUSH ONE (10:08)
--- NOTE | 2019-08-27 11:53 | CT ---
[id number] CT/CT Thoracic Spine WO IV EXAM: CT T-SPINE WITHOUT CONTRAST. INDICATION: FALL. COMPARISON: None. DISCUSSION: No fracture, dislocation or other osseous abnormality. The prevertebral soft tissues are unremarkable. No compression deformities. Mild multilevel spondylosis. The heart is enlarged. The main pulmonary artery is enlarged with the right pulmonary artery measuring up to 2.6 cm. Atherosclerotic calcifications of the aorta and its branches. IMPRESSION: 1. No fracture or acute compression deformity. Johnny Coleman DO 08/27/19 1152 Thank you for allowing us to participate in the care of your patient.
--- NOTE | 2019-08-27 12:01 | CT ---
[id number] CT/CT Cervical Spine WO IV Exam: CT Cervical Spine WO IV CLINICAL DATA: TRAUMA. COMPARISON: None. FINDINGS: No fracture or subluxation is seen. The C1-C2 articulation is unremarkable. The prevertebral soft tissues are within normal limits. Grade 1 retrolisthesis of C3 over C4. Multilevel degenerative changes of the cervical spine including loss of disc space height, endplate osteophytosis and facet arthropathy. These findings are most pronounced at C3-C4. IMPRESSION: NO ACUTE FRACTURE OR SUBLUXATION. Johnny Coleman DO 08/27/19 1207 Thank you for allowing us to participate in the care of your patient.
--- NOTE | 2019-08-27 12:05 | CR ---
[id number] RAD/RAD Forearm Right 2V EXAM: 2 VIEWS RIGHT FOREARM. INDICATION: FALL. COMPARISON: None. DISCUSSION: No fracture, dislocation or other acute osseous abnormality. IMPRESSION: 1. No acute osseous abnormalities. Johnny Coleman DO 08/27/19 2621 Thank you for allowing us to participate in the care of your patient.
[2019-08-27] MEDS ORDERED: cefTRIAXone 1 GM Vial IVPUSH ONE (12:06)
--- NOTE | 2019-08-27 12:07 | CR ---
[id number] RAD/RAD Hip Right 2-3V EXAM: 3 VIEWS RIGHT HIP. INDICATION: FALL. COMPARISON: June 25, 2019. DISCUSSION: Postsurgical changes following internal fixation of right femoral fracture. Again identified is a femoral neck fracture. This likely represents the previously identified fracture as there is callus formation. No definite new fractures identified. The right hip is in anatomic alignment. IMPRESSION: 1. As above. Johnny Coleman DO 08/27/19 9038 Thank you for allowing us to participate in the care of your patient.
[2019-08-27] MEDS ORDERED: Take Home: Acetaminophen/HYDROcodone 325-5 MG, 5 Tab Pack PO ONE (12:15)
== END 2019-08-27 13:00 | disposition home or self-care (01) ==
LOC: VM.ED 07:59
DX: S70.01XA Contusion of right hip, initial encounter (principal); S50.311A Abrasion of right elbow, initial encounter; M79.631 Pain in right forearm; N30.00 Acute cystitis without hematuria; I10 Essential (primary) hypertension; E78.00 Pure hypercholesterolemia, unspecified; M19.90 Unspecified osteoarthritis, unspecified site; G30.9 Alzheimer's disease, unspecified; F02.80 Dementia in other diseases classified elsewhere, unspecified severity, without behavioral disturbance, psychotic disturbance, mood disturbance, and anxiety; Z88.8 Allergy status to other drugs, medicaments and biological substances; Z79.899 Other long term (current) drug therapy; Z79.82 Long term (current) use of aspirin; X50.1XXA Overexertion from prolonged static or awkward postures, initial encounter; Y92.129 Unspecified place in nursing home as the place of occurrence of the external cause
CPT/HCPCS: 72125; 72128; 73090; 73502; 81001; 87086; 87088; 96374; 96375; 96376; 99284; 99285; A9270; J0696; J3010; J3490